=== PATIENT | male | born 1940 | race Caucasian/White ===

== ENCOUNTER 2017-01-07 03:35 | Inpatient (IN) | payer BC, MEDICARE ==
[~2017-01-07] VITALS: Ht 180.3 cm; Wt 72.6 kg
[~2017-01-07 03:35] MED LIST: ASPI-482 PO; Amoxicillin PO; CYCL10TA2 PO; DONE10TA34 PO; ERGO500012 PO; FLEXER; FLUT1DIS IH; IPRA4AER IH; LACT10SO35 PO; LEVO500T38 PO; LISI40TA PO; MORP30PC IV; MORP60TA25 PO; OXYC-250 PO; PANT40TA3 PO; PHENERGAN TAB; TAMS0.4C97 PO; TIZA2CAP3 PO; TRAM-29 PO; TRAZ100T12 PO
--- NOTE | 2017-01-07 04:06 | PHYS DOC ---
Past Medical History Past Medical History: Anxiety, Bronchitis, Cancer, COPD, CVA, Dementia, GERD, Hypertension, Stroke, Other Additional Past Medical Histor: diverticulitis, hemorrhoids, chronic back pain Past Surgical History: Appendectomy, Cholecystectomy, Other Additional Past Surgical Histo: fusion, cataract removal Alcohol Use: Heavy Drug Use: None Adult General Chief Complaint Chief Complaint: TRAUMA ALERT HPI HPI Patient is a 76 year old male presenting to the emergency department for evaluation of left shoulder pain status post fall 2 days ago. Patient is all bruised on his left arm diffusely. He denies any other areas of pain including head neck chest abdomen back or other extremities. He has no open wounds or abrasions. He denies taking any anticoagulants. Review of Systems Review of Systems Constitutional: Denies fever or chills [] Eyes: Denies change in visual acuity, redness, or eye pain [] HENT: Denies nasal congestion or sore throat [] Respiratory: Denies cough or shortness of breath [] Cardiovascular: No additional information not addressed in HPI [] GI: Denies abdominal pain, nausea, vomiting, bloody stools or diarrhea [] : Denies dysuria or hematuria [] Musculoskeletal: Denies back pain. + L shoulder joint pain [] Integument: Denies rash or skin lesions [] Neurologic: Denies headache, focal weakness or sensory changes [] Current Medications Current Medications Current Medications Medications (Trade) Dose Ordered [facility] Start Time Stop Time Status Last Admin Dose Admin Fentanyl Citrate (Fentanyl 2ml Vial) 75 mcg 1X ONCE 01/07/17 04:30 01/07/17 04:31 DC 01/07/17 04:27 75 MCG Allergies Allergies Allergies Coded Allergies Type Severity Reaction Last Updated Verified No Known Drug Allergies 09/24/13 No Physical Exam Physical Exam Constitutional: Well developed, well nourished, no acute distress, non-toxic appearance. [] HENT: Normocephalic, atraumatic, bilateral external ears normal, oropharynx moist, no oral exudates, nose normal. [] Eyes: PERRLA, EOMI, conjunctiva normal, no discharge. [] Neck: Normal range of motion, no tenderness, supple, no stridor. [] Cardiovascular:Heart rate regular rhythm, no murmur [] Lungs & Thorax: Bilateral breath sounds clear to auscultation [] Abdomen: Bowel sounds normal, soft, no tenderness, no masses, no pulsatile masses. [] Skin: Warm, dry, no erythema, no rash. [] Back: No tenderness, no CVA tenderness. [] Extremities: Left shoulder uneven with diffuse swelling and bruising on his humerus and forearm. Neurologic: Alert and oriented X 3, normal motor function, normal sensory function, no focal deficits noted. [] Current Patient Data Vital Signs Vital Signs Date Time Temp Pulse Resp B/P Pulse Ox O2 Delivery O2 Flow Rate FiO2 01/07/17 03:57 98.5 85 20 115/67 97 Room Air 98.5 EKG EKG [] Radiology/Procedures Radiology/Procedures Left shoulder fracture on x-ray. He is neurovascularly intact distally. I tried to explain to patient and family that we treat this with shoulder sling and discharged home. On said that this is unacceptable as he lives by himself and he cannot take care of himself and he has been falling more often at home. Patient will be admitted for his left shoulder fracture and likely need rehabilitation care. Course & Med Decision Making Course & Med Decision Making Pertinent Labs and Imaging studies reviewed. (See chart for details) [] Dragon Disclaimer Dragon Disclaimer This electronic medical record was generated, in whole or in part, using a voice recognition dictation system. Departure Departure Impression: Primary Impression: Shoulder fracture, left Disposition: ADMITTED INPATIENT Admitting Physician: Teodora Jones Condition: GOOD Referrals: TEODORA JONES MD (PCP) Problem Qualifiers Primary Impression: Shoulder fracture, left Encounter type: initial encounter Fracture type: closed Qualified Code: S42.92XA - Fracture of left shoulder girdle, part unspecified, initial encounter for closed fracture ESTEBAN SANTOS DO January 07, 2017 04:05
[2017-01-07] MEDS ORDERED: fentaNYL PF VIAL 100 MCG/2 ML VIAL IV ONE (04:30)
[2017-01-07] MEDS ORDERED: ONDANSETRON PF 4 MG/2 ML VIAL. IV PRN (05:00)
[2017-01-07] MEDS: fentaNYL PF VIAL 100 MCG/2 ML VIAL IV PRN ×4 (05:01→22:17)
--- NOTE | 2017-01-07 05:22 | ACF ---
Admission Forms Criteria MUSCULOSKELETAL DISEASE GRG Clinical Indications for Admission to Inpatient Care (Place 'X' for any and all applicable criteria): Hospital admission is needed for appropriate care of the patient because of 1 or more of the following: [X]I. Fracture, dislocation, or other musculoskeletal injury requiring inpatient care(medical) as indicated by 1 or more of the following(4)(5)(6)(7) [ ]a) Vertebral fracture requiring observation for instability or neurologic compromise (8) [ ]b) Compartment syndrome (proven or cannot be ruled out during observation level of care) (9) [ ]c) Limb-threatening injury [ ]d) Major injury requiring inpatient stabilization such as traction initiation or external fixation before internal fixation or closure of complex or open fracture [ ]e) Major injury requiring inpatient treatment after emergency or observation level care (as appropriate) [X]f) Severe pain requiring acute inpatient management [ ]g) Injury with suspicion of abuse or neglect (eg., child, dependent elderly) [ ]II. Newly diagnosed or suspected bone, joint, or orthopedic device infection (e.g., osteomyelitis, septic arthritis) needing 1 or more of the following(1)(2)(3) [ ]a) IV antibiotics that cannot be initiated in other than inpatient setting (e.g., patient too unstable or home infusion not available) [ ]b) Device removal or replacement [ ]c) Bone or soft tissue debridement [ ]d) Joint drainage (drain placement or repetitive aspirations) [ ]III. Severe rheumatologic disease (e.g., systemic lupus erythematosus, rheumatoid arthritis) with complications or comorbidities (Also use Optimal Recovery Care Criteria or General Recovery Criteria as appropriate on the basis of predominant condition), including 1 or more of the following( 10)(11)(12)(13) [ ]a) Severe infection (e.g., REGIONAL GUIDE infection, sepsis) (14) [ ]b) Respiratory complications, including 1 or more of the following : [ ]i) Pleural effusion with respiratory compromise [ ]ii) Pulmonary hypertension with congestive failure [ ]iii) Respiratory failure [ ]iv) Pulmonary hemorrhage (15) [ ]c) Hematologic disease, including 1 or more of the following: [ ]i) Coagulopathy with bleeding [ ]ii) Thrombosis with hypercoagulable state [ ]iii) Thrombotic thrombocytopenic purpura [ ]d) Cerebritis with seizures, psychosis, or other severe abnormalities [ ]e) Vertebral destruction with monitoring needed for cervical myelopathy& possible respiratory compromise [ ]f) Exacerbation that requires inpatient treatment (e.g., intravenous immunosuppression) (16) [ ]g) Acute renal failure [ ]h) Cerebritis with seizures, psychosis, Altered mental status, or other neurologic abnormalities [ ]i) Pericardial effusion with tamponade [ ]j) Vertebral destruction, with monitoring needed for cervical myelopathy and possible respiratory compromise [ ]IV. Severe vasculitis with complications or comorbidities (Also use Optimal Recovery Care Criteria General Recovery Criteria as appropriate on the basis of predominant condition), including 1 or more of the following(11)(12)(17)(18)(19)(20) [ ]a) Exacerbation that requires inpatient treatment (e.g., intravenous immunosuppression) (19)(21) [ ]b) Pulmonary hemorrhage (15) [ ]c) REGIONAL GUIDE vasculitis with seizures, psychosis, Altered mental status that is severe or persistent, or other severe abnormalities (22) [ ]d) Cerebral infarction [ ]e) Gastrointestinal ischemia [ ]f) Gangrene or threatened amputation [ ]g) Renal failure (16) [ ]h) Other significant complications of vasculitis ( eg., tissue or organ ischemia, organ dysfunction ) [ ]V. Severe myopathy as indicated by 1 or more of the following (28)(29) [ ]a) New onset of airway compromise or inability to swallow [ ]b) Respiratory deterioration with observation needed for impending respiratory failure [ ]c) Exacerbation that requires inpatient treatment (e.g., intravenous immunosuppression) [ ]. Severe crystal gout (arthropathy) indicated by 1 or more of the following (23)(24) [ ]a) Severe pain requiring acute inpatient management [ ]b) Exacerbation that requires inpatient treatment (e.g., intravenous treatment) [ ]VII.Rhabdomyolysis and 1 or more of the following (25)(26)(27) [ ]a) Acute renal failure [ ]b) Need for intravenous hydration after emergency or observation level care (as appropriate) [ ]c) Inability to maintain oral hydration [ ]d) Change in mental status [ ]e) Electrolyte abnormality that remains after emergency or observation level care (as appropriate) [ ]VIII Post amputation complication, as indicated by ANY ONE of the following [ ]a) Infection [ ]b) Dehiscence [ ]c) Myodesis failure [ ]IX. Severe pain requiring acute inpatient management due to musculoskeletal condition [ ]X. Musculoskeletal Disease and ALL of the following: [ ]a) Symptom or finding for which emergency and observation care have failed or are not considered appropriate (Use General Criteria: Observation Care as appropriate) [ ]b) Presence of ANY ONE of the following [ ]i) A General Admission Criteria [ ]ii) A Pediatric General Admission Criteria The original [facility] [employer] content created by [facility] [employer] has been revised. The portions of the content which have been revised are identified through the use of italic text or in bold, and [facility] has neither reviewed nor approved the modified material. All other unmodified content is copyright [facility]. Please see references footnoted in the original [facility] edition 2016 Admission Criteria Met?: Yes PURA ZUÑIGA January 07, 2017 05:22
[2017-01-07 06:06] LABS: CALCIUM 8.1 mg/dL (8.5-10.1); CREATININE 0.7 mg/dL (0.7-1.3); GFR 109.9; POTASSIUM 3.9 mmol/L (3.5-5.1)
[2017-01-07 06:12] LABS: ALBUMIN 2.8 g/dL (3.4-5.0); ALBUMIN/GLOBULIN RATIO 0.9 (1.0-1.7); TOTAL BILIRUBIN 1.8 mg/dL (0.2-1.0); TOTAL PROTEIN 5.9 g/dL (6.4-8.2)
[2017-01-07 06:24] LABS: BASO % 0 % (0-3); EOS % 0 % (0-3); HEMATOCRIT 30.3 % (39.0-53.0); HEMOGLOBIN 10.3 g/dL (13.0-17.5); LYMPH # 0.6 x10^3/uL (1.0-4.8); LYMPH % 7 % (24-48); MEAN CORPUSCULAR HEMOGLOBIN 34 pg (25-35); MEAN CORPUSCULAR HGB CONC 34 g/dL (31-37); MEAN CORPUSCULAR VOLUME 100 fL (79-100); MONO % 7 % (0-9); NEUT % 86 % (31-73); RED BLOOD COUNT 3.03 x10^6/uL (4.30-5.70); RED CELL DISTRIBUTION WIDTH 12.9 % (11.5-14.5); WHITE BLOOD COUNT 9.2 x10^3/uL (4.0-11.0)
[2017-01-07 06:38] VITALS: BP 131/61
[2017-01-07 06:42] LABS: INR 1.2 (0.8-1.1)
[2017-01-07 07:00] VITALS: BP 132/110
--- NOTE | 2017-01-07 07:29 | RAD ---
Indication pain. Oblique and lateral views of the left forearm were obtained. A true AP view was not obtained. There is soft tissue swelling. A bony abnormality is not seen.
--- NOTE | 2017-01-07 07:30 | RAD ---
Indication pain. AP and lateral views of the left humerus were obtained. There is an impacted and angulated traumatic fracture of the humeral neck with an associated avulsion fracture off the head.
--- NOTE | 2017-01-07 07:31 | RAD ---
Indication pain. An AP and a oblique view of the left shoulder were obtained. There is a transverse traumatic fracture of the humeral neck with associated impaction and angulation.
[2017-01-07 07:46] LABS: PLATELET COUNT 58 x10^3/uL (140-400)
[2017-01-07 08:11] LABS: PLT ESTIMATE DECREASED (ADEQUATE)
[2017-01-07] MEDS ORDERED: IV NORMAL SALINE 1000ML BAG 1,000 ML IV ONE (08:30)
--- NOTE | 2017-01-07 08:30 | PDOC1 ---
History and Physical Date of Admission Date of Admission DATE: 01/07/17 Identification/Chief Complaint Chief Complaint Left shoulder pain Problems: Source Source: Patient History of Present Illness History of Present Illness Pt states he was taking the trash out at home when he sustained a fall and fell directly on his left side onto the concrete. Pt states that he was using his walker at the time and just "lost his balance". Pt currently lives with his son and says that he knew he probably shouldn't have been taking the trash out. He is hoping to be able to go home, but is not sure if his sons are going to be okay with him coming directly home or if they are wanting him to go to Rehab first. He has otherwise been doing well, other than having problems with wetting his pants which has only fairly recently started. Past Medical History Cardiovascular: HTN Pulmonary: Bronchitis, COPD, Other CENTRAL NERVOUS SYSTEM: CVA, Dementia GI: Diverticulosis, GERD, Hemorrhoids, Other Heme/Onc: No pertinent hx Hepatobiliary: No pertinent hx Psych: Anxiety Musculoskeletal: low back pain Rheumatologic: No pertinent hx Infectious disease: No pertinent hx ENT: No pertinent hx Renal/: No pertinent hx, Prostate Ca. Endocrine: No pertinent hx Dermatology: No pertinent hx Past Surgical History Past Surgical History: Other (Back surgery, Gómez quentin placement) Family History Family History: Chronic Bronchitis, Heart Disease Social History Smoke: Quit ALCOHOL: other Drugs: None Current Problem List Problem List Problems Medical Problems: (1) Shoulder fracture, left Status: Acute Problems: Current Medications Current Medications Current Medications Fentanyl Citrate (Fentanyl 2ml Vial) 75 mcg 1X ONCE IV Last administered on 04:27; Start 01/07/17 at 04:30; Stop 01/07/17 at 04:31; Status DC Ondansetron HCl (Zofran) 4 mg PRN Q8HRS PRN IV NAUSEA/VOMITING; Start 01/07/17 at 05:00; Stop 01/08/17 at 04:59 Fentanyl Citrate (Fentanyl 2ml Vial) 50 mcg PRN Q2HR PRN IV SEVERE PAIN Last administered on 01/07/17 05:01; Start 01/07/17 at 05:00; Stop 01/08/17 at 04:59 Active Scripts Active Flomax (Tamsulosin Hcl) 0.4 Mg Cap.er.24h 0.4 Mg PO QHS Levaquin (Levofloxacin) 500 Mg Tablet 500 Mg PO DAILY06 Protonix (Pantoprazole Sodium) 40 Mg Tablet 40 Mg PO DAILYAC Reported Morphine Sulfate Cr (Morphine Sulfate) 60 Mg Tablet.er 60 Mg PO TID Generlac (Lactulose) 10 Gm/15 Ml Solution 10 Gm PO BID Vitamin D2 (Ergocalciferol (Vitamin D2)) 50,000 Unit Capsule 50,000 Unit PO WEEKLY Aspir 81 (Aspirin) 81 Mg Tablet.dr 81 Mg PO DAILY Advair 100-50 Diskus (Fluticasone/Salmeterol) 1 Each Disk.w.dev 1 Each IH BID Combivent Respimat Inhal (Ipratropium/Albuterol Sulfate) 4 Gm Aer.w.adap 4 Gm IH QID Aricept (Donepezil Hcl) 10 Mg Tablet 10 Mg PO DAILY Percocet 10-325 Mg Tablet (Oxycodone/Acetaminophen) 1 Each Tablet 1 Each PO QID Lisinopril 40 Mg Tablet 40 Mg PO DAILY Trazodone Hcl 100 Mg Tablet 100 Mg PO 1X Allergies Allergies: Coded Allergies: No Known Drug Allergies (Unverified , 09/24/13) ROS General: No: Chills, Night Sweats PSYCHOLOGICAL ROS: No: Anxiety, Depression Eyes: No Decreased vision, No Eye Pain HEENT: No: Nasal congestion, Sore Throat ALLERGY AND IMMUNOLOGY: No: Hives, Post Nasal Drip Hematological and Lymphatic: No: Bleeding Problems Respiratory: YES: Cough, No: Shortness of breath, Sputum Changes Cardiovascular: No Chest Pain, No Edema Gastrointestinal: No Abdominal Pain, No Constipation, No Diarrhea, No Nausea, No Vomiting Genitourinary: YES Incontinence, YES Urgency, No Dysuria Musculoskeletal: Yes Gait Disturbance, Yes Joint Pain, Yes Muscle Pain, Yes Muscular Weakness Neurological: Yes Impaired Coord/balance, No Numbness/Tingling, No Seizures Skin: No Rash, No Skin Lesion Changes Physical Exam General: Alert, Oriented X3, Cooperative, No acute distress HEENT: Atraumatic, PERRLA, EOMI, Mucous membr. moist/pink Lungs: Clear to auscultation, Normal air movement Heart: RRR, no thrills, no rubs, no gallops, no murmurs Abdomen: Normal bowel sounds, Soft, No tenderness, No hepatosplenomegaly Extremities: Other (large ecchymosis left shoulder/arm, several small ecchymoses seen on arms ) Neuro: Sensation intact, Cranial nerves 3-12 NL Psych/Mental Status: Mental status NL, Mood NL Vitals Vitals Vital Signs Date Time Temp Pulse Resp B/P Pulse Ox O2 Delivery O2 Flow Rate FiO2 01/07/17 07:00 95.0 85 16 132/110 99 Room Air 95.0 Labs Labs Laboratory Tests Test 01/07/17 05:20 White Blood Count 9.2x10^3/uL (4.0-11.0) Red Blood Count 3.03x10^6/uL (4.30-5.70) Hemoglobin 10.3g/dL (13.0-17.5) Hematocrit 30.3% (39.0-53.0) Mean Corpuscular Volume 100fL (79-100) Mean Corpuscular Hemoglobin 34pg (25-35) Mean Corpuscular Hemoglobin Concent 34g/dL (31-37) Red Cell Distribution Width 12.9% (11.5-14.5) Platelet Count 58x10^3/uL (140-400) Neutrophils (%) (Auto) 86% (31-73) Lymphocytes (%) (Auto) 7% (24-48) Monocytes (%) (Auto) 7% (0-9) Eosinophils (%) (Auto) 0% (0-3) Basophils (%) (Auto) 0% (0-3) Neutrophils # (Auto) 7.9x10^3uL (1.8-7.7) Lymphocytes # (Auto) 0.6x10^3/uL (1.0-4.8) Monocytes # (Auto) 0.6x10^3/uL (0.0-1.1) Eosinophils # (Auto) 0.0x10^3/uL (0.0-0.7) Basophils # (Auto) 0.0x10^3/uL (0.0-0.2) Segmented Neutrophils % 87% (35-66) Band Neutrophils % 1% (0-9) Lymphocytes % 6% (24-48) Monocytes % 6% (0-10) Platelet Estimate Decreased (ADEQUATE) Prothrombin Time 14.0SEC (11.7-14.0) Prothromb Time International Ratio 1.2 (0.8-1.1) Activated Partial Thromboplast Time 37SEC (24-38) Sodium Level 129mmol/L (136-145) Potassium Level 3.9mmol/L (3.5-5.1) Chloride Level 98mmol/L (98-107) Carbon Dioxide Level 26mmol/L (21-32) Anion Gap 5 (6-14) Blood Urea Nitrogen 9mg/dL (8-26) Creatinine 0.7mg/dL (0.7-1.3) Estimated GFR (Cockcroft-Gault) 109.9 BUN/Creatinine Ratio 13 (6-20) Glucose Level 130mg/dL (70-99) Calcium Level 8.1mg/dL (8.5-10.1) Total Bilirubin 1.8mg/dL (0.2-1.0) Aspartate Amino Transf (AST/SGOT) 28U/L (15-37) Alanine Aminotransferase (ALT/SGPT) 24U/L (16-63) Alkaline Phosphatase 74U/L (46-116) Total Protein 5.9g/dL (6.4-8.2) Albumin 2.8g/dL (3.4-5.0) Albumin/Globulin Ratio 0.9 (1.0-1.7) Laboratory Tests Test 01/07/17 05:20 White Blood Count 9.2x10^3/uL (4.0-11.0) Red Blood Count 3.03x10^6/uL (4.30-5.70) Hemoglobin 10.3g/dL (13.0-17.5) Hematocrit 30.3% (39.0-53.0) Mean Corpuscular Volume 100fL (79-100) Mean Corpuscular Hemoglobin 34pg (25-35) Mean Corpuscular Hemoglobin Concent 34g/dL (31-37) Red Cell Distribution Width 12.9% (11.5-14.5) Platelet Count 58x10^3/uL (140-400) Neutrophils (%) (Auto) 86% (31-73) Lymphocytes (%) (Auto) 7% (24-48) Monocytes (%) (Auto) 7% (0-9) Eosinophils (%) (Auto) 0% (0-3) Basophils (%) (Auto) 0% (0-3) Neutrophils # (Auto) 7.9x10^3uL (1.8-7.7) Lymphocytes # (Auto) 0.6x10^3/uL (1.0-4.8) Monocytes # (Auto) 0.6x10^3/uL (0.0-1.1) Eosinophils # (Auto) 0.0x10^3/uL (0.0-0.7) Basophils # (Auto) 0.0x10^3/uL (0.0-0.2) Segmented Neutrophils % 87% (35-66) Band Neutrophils % 1% (0-9) Lymphocytes % 6% (24-48) Monocytes % 6% (0-10) Platelet Estimate Decreased (ADEQUATE) Prothrombin Time 14.0SEC (11.7-14.0) Prothromb Time International Ratio 1.2 (0.8-1.1) Activated Partial Thromboplast Time 37SEC (24-38) Sodium Level 129mmol/L (136-145) Potassium Level 3.9mmol/L (3.5-5.1) Chloride Level 98mmol/L (98-107) Carbon Dioxide Level 26mmol/L (21-32) Anion Gap 5 (6-14) Blood Urea Nitrogen 9mg/dL (8-26) Creatinine 0.7mg/dL (0.7-1.3) Estimated GFR (Cockcroft-Gault) 109.9 BUN/Creatinine Ratio 13 (6-20) Glucose Level 130mg/dL (70-99) Calcium Level 8.1mg/dL (8.5-10.1) Total Bilirubin 1.8mg/dL (0.2-1.0) Aspartate Amino Transf (AST/SGOT) 28U/L (15-37) Alanine Aminotransferase (ALT/SGPT) 24U/L (16-63) Alkaline Phosphatase 74U/L (46-116) Total Protein 5.9g/dL (6.4-8.2) Albumin 2.8g/dL (3.4-5.0) Albumin/Globulin Ratio 0.9 (1.0-1.7) VTE Prophylaxis Ordered VTE Prophylaxis Devices: Yes VTE Pharmacological Prophylaxi: No Assessment/Plan Assessment/Plan Pt is a 76yo CM admitted with left humeral fracture after fall 1)Left humeral fracture- Ortho has been consulted. 2)Thrombocytopenia- acute on chronic with significant bruising left arm from fall. Recheck in am 3)Hyponatremia- new finding. Likely 2/2 dehydration. Will give pt 1L IVFs 4)Anemia- acute on chronic. Worsening likely 2/2 traumatic bleeding from fall. CTM 5)Hyperglycemia- HbA1C pending. 6)PEM- severe. 7)Dementia- pt continued on Aricept 8)GERD- pt continued on Pantoprazole 9)Chronic back pain- with Gómez quentin placement. Pt continued on MS Contin 60mg BID and Oxycodone 10mg q6H prn 10)HTN- well controlled. Pt continued on Lisinopril 40mg 11)COPD- stable. Pt continued on Duonebs and Albuterol inhaler. HUDSON JEFFERS MD January 07, 2017 08:30
[2017-01-07] MEDS: IPRATRPIUM/ALBUTEROL 0.5/2.5MG 3 ML NEBU. NEB SCH ×4 (09:00→19:07)
[2017-01-07] MEDS ORDERED: NON FORMULARY ITEM (Fluticasone/Salmeterol (Advair 100-50 Diskus) 1 EACH) IH SCH (09:00)
[2017-01-07] MEDS ORDERED: NON FORMULARY ITEM (Ipratropium/Albuterol Sulfate (Combivent Respimat Inhal) 4 GM) IH SCH (09:00)
[2017-01-07] MEDS: PANTOPRAZOLE 40 MG TABLET.DR. PO SCH (09:25)
[2017-01-07] MEDS: LISINOPRIL 40 MG TABLET. PO SCH (09:26)
[2017-01-07] MEDS: DONEPEZIL HCL 10 MG TABLET. PO SCH (09:26)
[2017-01-07] MEDS: MORPHINE ER 30 MG TABLET.ER PO SCH ×2 (09:28→20:10)
[2017-01-07 11:00] VITALS: BP 121/68
[2017-01-07] MEDS: BUDESONIDE 0.5 MG/2 ML NEBU. NEB SCH ×2 (11:19→19:07)
[2017-01-07 15:00] VITALS: BP 109/64
--- NOTE | 2017-01-07 17:20 | PDOC2 ---
CONSULT Date of Consult Date of Consult DATE: 01/07/17 TIME: 17:13 History of Present Illness Reason for Visit: The patient is a 76 year old male who reported to the hospital after a fall. He states he was taking his trash out and fell on his left side. He is a somewhat poor historian and some additional history was obtained from the record. He complains only of pain in the left shoulder. His evaluation in the ER revealed a left humeral fracture. While in the hospital he also had some urinary retention and a pfeiffer catheter was just placed by his nurse. Past Medical History Cardiovascular: HTN Pulmonary: Bronchitis, COPD, Other CENTRAL NERVOUS SYSTEM: CVA, Dementia GI: Diverticulosis, GERD, Hemorrhoids, Other Heme/Onc: No pertinent hx Hepatobiliary: No pertinent hx Psych: Anxiety Musculoskeletal: low back pain Rheumatologic: No pertinent hx Infectious disease: No pertinent hx ENT: No pertinent hx Renal/: No pertinent hx, Prostate Ca. Endocrine: No pertinent hx Dermatology: No pertinent hx Past Surgical History Past Surgical History: Other (Back surgery, Gómez quentin placement) Family History Family History: Chronic Bronchitis, Heart Disease Social History Quit ALCOHOL: other Drugs: None Current Problem List Problem List Problems Medical Problems: (1) Shoulder fracture, left Status: Acute Current Medications Current Medications Current Medications Fentanyl Citrate (Fentanyl 2ml Vial) 75 mcg 1X ONCE IV Last administered on 04:27; Start 01/07/17 at 04:30; Stop 01/07/17 at 04:31; Status DC Ondansetron HCl (Zofran) 4 mg PRN Q8HRS PRN IV NAUSEA/VOMITING; Start 01/07/17 at 05:00; Stop 01/08/17 at 04:59 Fentanyl Citrate (Fentanyl 2ml Vial) 50 mcg PRN Q2HR PRN IV SEVERE PAIN Last administered on 01/07/17 14:08; Start 01/07/17 at 05:00; Stop 01/08/17 at 04:59 Donepezil HCl (Aricept) 10 mg DAILY PO Last administered on 01/07/17 09:26; Start 01/07/17 at 09:00 Lisinopril (Prinivil) 40 mg DAILY PO Last administered on 01/07/17 09:26; Start 01/07/17 at 09:00 Pantoprazole Sodium (Protonix) 40 mg DAILYAC PO Last administered on 01/07/17 09:25; Start 01/07/17 at 09:00 Tamsulosin HCl (Flomax) 0.4 mg QHS PO ; Start 01/07/17 at 21:00 Trazodone HCl (Desyrel) 100 mg QHS PO ; Start 01/07/17 at 21:00 Non-Formulary Medication 1 each BID IH ; Start 01/07/17 at 09:00; Status UNV Non-Formulary Medication 4 gm QID IH ; Start 01/07/17 at 09:00; Status UNV Morphine Sulfate (Ms Contin) 60 mg BID PO Last administered on 01/07/17 09:28; Start 01/07/17 at 09:00 Oxycodone HCl (Roxicodone) 10 mg PRN Q6HRS PRN PO PAIN; Start 01/07/17 at 08:30 Albuterol/ Ipratropium (Duoneb) 3 ml RTQID NEB Last administered on 01/07/17 15 :45; Start 01/07/17 at 09:00 Budesonide 0.5 mg 0.5 mg RTBID NEB Last administered on 01/07/17 11:19; Start 01/07/17 at 09:00 Sodium Chloride (Iv Sodium Chloride 0.9% 1000ml Bag) 1,000 ml @ 100 mls/hr 1X ONCE IV Last administered on 01/07/17 09:28; Start 01/07/17 at 08:30; Stop at 18:29 Active Scripts Active Flomax (Tamsulosin Hcl) 0.4 Mg Cap.er.24h 0.4 Mg PO QHS Levaquin (Levofloxacin) 500 Mg Tablet 500 Mg PO DAILY06 Protonix (Pantoprazole Sodium) 40 Mg Tablet 40 Mg PO DAILYAC Reported Morphine Sulfate Cr (Morphine Sulfate) 60 Mg Tablet.er 60 Mg PO TID Generlac (Lactulose) 10 Gm/15 Ml Solution 10 Gm PO BID Vitamin D2 (Ergocalciferol (Vitamin D2)) 50,000 Unit Capsule 50,000 Unit PO WEEKLY Aspir 81 (Aspirin) 81 Mg Tablet.dr 81 Mg PO DAILY Advair 100-50 Diskus (Fluticasone/Salmeterol) 1 Each Disk.w.dev 1 Each IH BID Combivent Respimat Inhal (Ipratropium/Albuterol Sulfate) 4 Gm Aer.w.adap 4 Gm IH QID Aricept (Donepezil Hcl) 10 Mg Tablet 10 Mg PO DAILY Percocet 10-325 Mg Tablet (Oxycodone/Acetaminophen) 1 Each Tablet 1 Each PO QID Lisinopril 40 Mg Tablet 40 Mg PO DAILY Trazodone Hcl 100 Mg Tablet 100 Mg PO 1X Allergies Allergies: Coded Allergies: No Known Drug Allergies (Unverified , 09/24/13) ROS General: YES: Other (admits to weakness ) PSYCHOLOGICAL ROS: No: Anxiety, Behavioral Disorder, Concentration difficultie , Decreased libido, Depression, Disorientation, Hallucinations, Hostility, Irritablity, Memory difficulties, Mood Swings, Obsessive thoughts, Other, Physical abuse, Sexual abuse, Sleep disturbances, Suicidal ideation Eyes: No Blurry vision, No Decreased vision, No Double vision, No Dry eyes, No Excessive tearing, No Eye Pain, No Itchy Eyes, No Loss of vision, No Other, No Photophobia, No Scotomata, No Uses contacts, No Uses glasses HEENT: No: Epistaxis, Heacaches, Hearing change, Nasal congestion, Nasal discharge, Oral lesions, Other, Sinus pain, Sneezing, Snoring, Sore Throat, Tinnitus, Vertigo, Visual Changes, Vocal changes Respiratory: YES: Cough, Shortness of breath Cardiovascular: No Chest Pain, No Edema, No Lt Headedness, No Orthopnea, No Other, No Palpitations, No Paroxysmal Noc. Dyspnea Gastrointestinal: No Abdominal Pain, No Constipation, No Diarrhea, No Hematochezia, No Melena, No Nausea, No Other, No Vomiting Genitourinary: YES Incontinence Musculoskeletal: No Gait Disturbance, No Joint Pain, No Joint Stiffness, No Joint Swelling, No Muscle Pain, No Muscular Weakness, No Other, No Pain In:, No Swelling In: Neurological: No Behavorial Changes, No Bowel/Bladder ControlChng, No Confusion , No Dizziness, No Gait Disturbance, No Headaches, No Impaired Coord/balance, No Memory Loss, No Numbness/Tingling, No Other, No Seizures, No Speech Problems , No Tremors, No Visual Changes, No Weakness Skin: Yes Acne (easy bruising) Physical Exam General: Alert, Oriented X3, Other (elderly, frail, uncomfortable due to pain in the left shoulder) HEENT: Atraumatic, PERRLA Lungs: Clear to auscultation, Other (somewhat poor air movement due to secondary shoulder pain) Heart: Regular rate Abdomen: Soft, No tenderness Extremities: Other (left shoulder with severe ecchymosis, sling; mild bruising in other extremities, patient states is chronic) Skin: No rashes Neuro: Normal speech Psych/Mental Status: Mental status NL MUSCULOSKELETAL: Other (left humerous with tenderness, bruising, sling) Vitals VITALS Vital Signs Date Time Temp Pulse Resp B/P Pulse Ox O2 Delivery O2 Flow Rate FiO2 01/07/17 15:46 Room Air 01/07/17 15:00 98.2 107 18 109/64 96 98.2 Labs Labs Laboratory Tests Test 01/07/17 05:20 01/07/17 06:40 White Blood Count 9.2x10^3/uL (4.0-11.0) Red Blood Count 3.03x10^6/uL (4.30-5.70) Hemoglobin 10.3g/dL (13.0-17.5) Hematocrit 30.3% (39.0-53.0) Mean Corpuscular Volume 100fL (79-100) Mean Corpuscular Hemoglobin 34pg (25-35) Mean Corpuscular Hemoglobin Concent 34g/dL (31-37) Red Cell Distribution Width 12.9% (11.5-14.5) Platelet Count 58x10^3/uL (140-400) Neutrophils (%) (Auto) 86% (31-73) Lymphocytes (%) (Auto) 7% (24-48) Monocytes (%) (Auto) 7% (0-9) Eosinophils (%) (Auto) 0% (0-3) Basophils (%) (Auto) 0% (0-3) Neutrophils # (Auto) 7.9x10^3uL (1.8-7.7) Lymphocytes # (Auto) 0.6x10^3/uL (1.0-4.8) Monocytes # (Auto) 0.6x10^3/uL (0.0-1.1) Eosinophils # (Auto) 0.0x10^3/uL (0.0-0.7) Basophils # (Auto) 0.0x10^3/uL (0.0-0.2) Segmented Neutrophils % 87% (35-66) Band Neutrophils % 1% (0-9) Lymphocytes % 6% (24-48) Monocytes % 6% (0-10) Platelet Estimate Decreased (ADEQUATE) Prothrombin Time 14.0SEC (11.7-14.0) Prothromb Time International Ratio 1.2 (0.8-1.1) Activated Partial Thromboplast Time 37SEC (24-38) Sodium Level 129mmol/L (136-145) Potassium Level 3.9mmol/L (3.5-5.1) Chloride Level 98mmol/L (98-107) Carbon Dioxide Level 26mmol/L (21-32) Anion Gap 5 (6-14) Blood Urea Nitrogen 9mg/dL (8-26) Creatinine 0.7mg/dL (0.7-1.3) Estimated GFR (Cockcroft-Gault) 109.9 BUN/Creatinine Ratio 13 (6-20) Glucose Level 130mg/dL (70-99) Calcium Level 8.1mg/dL (8.5-10.1) Total Bilirubin 1.8mg/dL (0.2-1.0) Aspartate Amino Transf (AST/SGOT) 28U/L (15-37) Alanine Aminotransferase (ALT/SGPT) 24U/L (16-63) Alkaline Phosphatase 74U/L (46-116) Total Protein 5.9g/dL (6.4-8.2) Albumin 2.8g/dL (3.4-5.0) Albumin/Globulin Ratio 0.9 (1.0-1.7) Nasal Screen MRSA (PCR) Negative (Negative) Laboratory Tests Test 01/07/17 05:20 01/07/17 06:40 White Blood Count 9.2x10^3/uL (4.0-11.0) Red Blood Count 3.03x10^6/uL (4.30-5.70) Hemoglobin 10.3g/dL (13.0-17.5) Hematocrit 30.3% (39.0-53.0) Mean Corpuscular Volume 100fL (79-100) Mean Corpuscular Hemoglobin 34pg (25-35) Mean Corpuscular Hemoglobin Concent 34g/dL (31-37) Red Cell Distribution Width 12.9% (11.5-14.5) Platelet Count 58x10^3/uL (140-400) Neutrophils (%) (Auto) 86% (31-73) Lymphocytes (%) (Auto) 7% (24-48) Monocytes (%) (Auto) 7% (0-9) Eosinophils (%) (Auto) 0% (0-3) Basophils (%) (Auto) 0% (0-3) Neutrophils # (Auto) 7.9x10^3uL (1.8-7.7) Lymphocytes # (Auto) 0.6x10^3/uL (1.0-4.8) Monocytes # (Auto) 0.6x10^3/uL (0.0-1.1) Eosinophils # (Auto) 0.0x10^3/uL (0.0-0.7) Basophils # (Auto) 0.0x10^3/uL (0.0-0.2) Segmented Neutrophils % 87% (35-66) Band Neutrophils % 1% (0-9) Lymphocytes % 6% (24-48) Monocytes % 6% (0-10) Platelet Estimate Decreased (ADEQUATE) Prothrombin Time 14.0SEC (11.7-14.0) Prothromb Time International Ratio 1.2 (0.8-1.1) Activated Partial Thromboplast Time 37SEC (24-38) Sodium Level 129mmol/L (136-145) Potassium Level 3.9mmol/L (3.5-5.1) Chloride Level 98mmol/L (98-107) Carbon Dioxide Level 26mmol/L (21-32) Anion Gap 5 (6-14) Blood Urea Nitrogen 9mg/dL (8-26) Creatinine 0.7mg/dL (0.7-1.3) Estimated GFR (Cockcroft-Gault) 109.9 BUN/Creatinine Ratio 13 (6-20) Glucose Level 130mg/dL (70-99) Calcium Level 8.1mg/dL (8.5-10.1) Total Bilirubin 1.8mg/dL (0.2-1.0) Aspartate Amino Transf (AST/SGOT) 28U/L (15-37) Alanine Aminotransferase (ALT/SGPT) 24U/L (16-63) Alkaline Phosphatase 74U/L (46-116) Total Protein 5.9g/dL (6.4-8.2) Albumin 2.8g/dL (3.4-5.0) Albumin/Globulin Ratio 0.9 (1.0-1.7) Nasal Screen MRSA (PCR) Negative (Negative) Assessment/Plan Assessment/Plan 76 year old male S/P fall, left humerus fracture, urinary retention. Ortho has been consulted regarding the humeral fracture. There are no other identified associated injuries. We will sign off, please call if we can assist in the future. SREEDHAR BAPTISTE MD January 07, 2017 17:20
[2017-01-07 17:28] LABS: BILIRUBIN,URINE NEGATIVE (NEG); GLUCOSE,URINE NEGATIVE (NEG); NITRITE,URINE NEGATIVE (NEG); PROTEIN,URINE NEGATIVE (NEG-TRACE)
[2017-01-07 17:34] LABS: BACTERIA,URINE 0 /HPF (0-FEW); RBC,URINE 0 /HPF (0-2); SQUAMOUS EPITHELIAL CELL,UR OCC /LPF; WBC,URINE 0 /HPF (0-4)
[2017-01-07 19:15] VITALS: BP 105/54
[2017-01-07] MEDS: IV RINGERS,LACTATED 1000ML 1,000 ML IV SCH (20:03)
[2017-01-07] MEDS: traZODone 100 MG TABLET. PO SCH (20:10)
[2017-01-07] MEDS: TAMSULOSIN 0.4 MG CAP.ER.24H. PO SCH (20:10)
[2017-01-07] MEDS: oxyCODONE IR 5 MG TABLET PO PRN (20:10)
[2017-01-07] MEDS ORDERED: MIDAZOLAM HCL/PF 2 MG/2 ML VIAL. IV PRN ×2 (20:15)
[2017-01-07] MEDS ORDERED: MEPERIDINE PF 25 MG/ML VIAL. IV PRN (20:15)
[2017-01-07] MEDS ORDERED: HYDROmorphone 2 MG/ML VIAL IV PRN (20:15)
[2017-01-07] MEDS ORDERED: MORPHINE SULFATE 4 MG/ML DISP.SYRIN. IV PRN (20:15)
[2017-01-07] MEDS ORDERED: diphenhydrAMINE 50 MG/ML VIAL IV PRN (20:15)
[2017-01-07] MEDS ORDERED: PROCHLORPERAZINE 10 MG/2 ML VIAL. IV PRN (20:15)
[2017-01-07] MEDS ORDERED: LIDOCAINE 1% 1 ML SYRINGE. ID PRN (20:15)
[2017-01-07] MEDS ORDERED: fentaNYL PF VIAL 100 MCG/2 ML VIAL IV PRN ×2 (20:15)
[2017-01-07 23:28] VITALS: BP 95/52
[2017-01-08] VITALS (12 sets, daily range): BP systolic 104–141; BP diastolic 52–89
[2017-01-08] MEDS: oxyCODONE IR 5 MG TABLET PO PRN ×2 (01:43→20:04)
[2017-01-08] MEDS: fentaNYL PF VIAL 100 MCG/2 ML VIAL IV PRN ×4 (01:44→18:07)
[2017-01-08] MEDS: IV RINGERS,LACTATED 1000ML 1,000 ML IV SCH (01:44)
[2017-01-08] MEDS: PANTOPRAZOLE 40 MG TABLET.DR. PO SCH (04:43)
[2017-01-08] MEDS: IPRATRPIUM/ALBUTEROL 0.5/2.5MG 3 ML NEBU. NEB SCH ×4 (06:57→19:06)
[2017-01-08] MEDS: BUDESONIDE 0.5 MG/2 ML NEBU. NEB SCH ×2 (06:58→19:07)
[2017-01-08] MEDS: LISINOPRIL 40 MG TABLET. PO SCH (08:05)
[2017-01-08] MEDS: MORPHINE ER 30 MG TABLET.ER PO SCH ×2 (08:05→20:03)
[2017-01-08] MEDS: DONEPEZIL HCL 10 MG TABLET. PO SCH (08:05)
--- NOTE | 2017-01-08 08:49 | PDOC ---
SUBJECTIVE Subjective Pt states that he is feeling better this morning. Still having pain in his left shoulder. Scheduled for surgery this afternoon. OBJECTIVE Vital Signs Vital Signs Date Time Temp Pulse Resp B/P Pulse Ox O2 Delivery O2 Flow Rate FiO2 01/08/17 08:05 Room Air 01/08/17 08:05 93 113/63 01/08/17 08:00 Room Air 01/08/17 07:00 98.6 93 14 113/63 97 Room Air 98.6 01/08/17 06:59 97 Room Air 01/08/17 04:55 Room Air 01/08/17 03:32 98.1 69 18 104/52 93 Room Air 98.1 01/08/17 02:15 Room Air 01/08/17 01:44 18 01/08/17 01:43 18 01/08/17 00:20 18 Room Air 01/07/17 23:28 98.7 89 18 95/52 98 Room Air 98.7 01/07/17 22:17 18 Room Air 01/07/17 21:58 Room Air 01/07/17 20:18 22 Room Air 01/07/17 20:10 18 Room Air 01/07/17 20:10 Room Air 01/07/17 20:00 Room Air 01/07/17 19:15 97.7 102 18 105/54 99 Room Air 97.7 01/07/17 19:10 Room Air 01/07/17 19:09 Room Air 01/07/17 15:46 Room Air 01/07/17 15:00 98.2 107 18 109/64 96 Room Air 98.2 01/07/17 14:38 18 01/07/17 14:08 18 Room Air 01/07/17 11:15 97 Room Air 01/07/17 11:00 98.8 74 18 121/68 95 Room Air 98.8 01/07/17 09:28 16 Room Air 01/07/17 09:26 85 132/110 I & O Intake and Output 01/08/17 07:00 Intake Total 240 ml Output Total 800 ml Balance -560 ml Intake Oral 240 ml Output Urine Total 800 ml PHYSICAL EXAM Physical Exam General: Alert, Oriented X3, Cooperative, No acute distress HEENT: Atraumatic, PERRLA, EOMI, Mucous membr. moist/pink Lungs: Clear to auscultation, Normal air movement Heart: RRR, no thrills, no rubs, no gallops, no murmurs Abdomen: Normal bowel sounds, Soft, No tenderness, No hepatosplenomegaly Extremities: Other (large ecchymosis left shoulder/arm, several small ecchymoses seen on arms ), left arm in sling Neuro: Sensation intact, Cranial nerves 3-12 NL Psych/Mental Status: Mental status NL, Mood NL ASSESSMENT/PLAN Assessment/Plan Pt is a 76yo CM admitted with left humeral fracture after fall 1)Left humeral fracture- Ortho has been consulted, surgery this afternoon 2)Thrombocytopenia- acute on chronic with significant bruising left arm from fall. Repeat labs pending 3)Hyponatremia- new finding. Likely 2/2 dehydration. Will give pt 1L IVFs, repeat labs pending this morning 4)Anemia- acute on chronic. Worsening likely 2/2 traumatic bleeding from fall. CTM 5)Hyperglycemia- normal HbA1C this admission 6)PEM- severe. 7)Dementia- pt continued on Aricept 8)GERD- pt continued on Pantoprazole 9)Chronic back pain- with Gómez quentin placement. Pt continued on MS Contin 60mg BID and Oxycodone 10mg q6H prn 10)HTN- well controlled. Pt continued on Lisinopril 40mg 11)COPD- stable. Pt continued on Duonebs and Albuterol inhaler. Problems: COMMENT Lab Laboratory Tests Test 01/07/17 16:55 Urine Collection Type Unknown Urine Color Yellow Urine Clarity Clear Urine pH 6.0 Urine Specific [place] 1.010 Urine Protein Negativemg/dL (NEG-TRACE) Urine Glucose (UA) Negativemg/dL (NEG) Urine Ketones (Stick) Negativemg/dL (NEG) Urine Blood Negative (NEG) Urine Nitrite Negative (NEG) Urine Bilirubin Negative (NEG) Urine Urobilinogen Dipstick 1.0mg/dL (0.2 mg/dL) Urine Leukocyte Esterase Negative (NEG) Urine RBC 0/HPF (0-2) Urine WBC 0/HPF (0-4) Urine Squamous Epithelial Cells Occ/LPF Urine Bacteria 0/HPF (0-FEW) Urine Hyaline Casts Occasional/HPF Urine Mucus Slight/LPF HUDSON JEFFERS MD January 08, 2017 08:49
[2017-01-08 09:52] LABS: HEMATOCRIT 22.5 % (39.0-53.0); HEMOGLOBIN 7.9 g/dL (13.0-17.5); RED BLOOD COUNT 2.29 x10^6/uL (4.30-5.70); RED CELL DISTRIBUTION WIDTH 12.9 % (11.5-14.5); WHITE BLOOD COUNT 5.2 x10^3/uL (4.0-11.0)
[2017-01-08 09:58] LABS: CALCIUM 7.5 mg/dL (8.5-10.1); CREATININE 0.6 mg/dL (0.7-1.3); GFR 131.3; POTASSIUM 3.5 mmol/L (3.5-5.1)
[2017-01-08] MEDS ORDERED: DEXAMETHASONE SOD PHOS 20 MG/5 ML VIAL. ONE (14:45)
[2017-01-08] MEDS ORDERED: PROPOFOL 20 ML IV ONE (14:45)
[2017-01-08] MEDS ORDERED: ONDANSETRON PF 4 MG/2 ML VIAL. ONE (14:45)
[2017-01-08] MEDS ORDERED: LIDOCAINE 2% 100 MG/5 ML SYRINGE. ONE (14:45)
[2017-01-08] MEDS ORDERED: PHENYLEPHRINE in 0.9% NACL PF 1 MG/10 ML DISP.SYRIN. IV ONE (14:46)
[2017-01-08] MEDS ORDERED: ePHEDrine PF IN SALINE 50 MG/5 ML DISP.SYRIN IV ONE (14:46)
[2017-01-08] MEDS ORDERED: fentaNYL PF VIAL 250 MCG/5 ML VIAL ONE (14:47)
[2017-01-08] MEDS ORDERED: ROCURONIUM 50 MG/5 ML VIAL. ONE (14:47)
[2017-01-08] MEDS ORDERED: SUCCINYLCHOLINE 200 MG/10 ML VIAL. ONE (15:25)
[2017-01-08] MEDS ORDERED: PHENYLEPHRINE 10 MG/ML VIAL. ONE (16:14)
[2017-01-08] MEDS ORDERED: DESFLURANE > 120 MINUTES IH ONE (17:05)
[2017-01-08] MEDS ORDERED: NEOSTIGMINE METHYLSULFATE 5 MG/5 ML SYRINGE. ONE (17:08)
[2017-01-08] MEDS ORDERED: GLYCOPYRROLATE 1 MG/5 ML VIAL. ONE (17:09)
--- NOTE | 2017-01-08 17:37 | PDOC ---
BRIEF OPERATIVE NOTE Date: January 08, 2017 Pre-Op Diagnosis left proximal humerus fx Post-Op Diagnosis same Procedure Performed ORIF left proximal humerus fx Surgeon Kimberlee Anesthesia Type: General Blood Loss 150cc Findings above Complications none FLAKO WORKMAN MD January 08, 2017 17:37
[2017-01-08] MEDS: TAMSULOSIN 0.4 MG CAP.ER.24H. PO SCH (20:03)
[2017-01-08] MEDS: traZODone 100 MG TABLET. PO SCH (20:03)
--- NOTE | 2017-01-08 21:18 | OP ---
DATE OF SURGERY: 01/08/2017 PREOPERATIVE DIAGNOSIS: Displaced left proximal humerus fracture. POSTOPERATIVE DIAGNOSIS: Displaced left proximal humerus fracture. PROCEDURE: Operative reduction and internal fixation of left proximal humerus fracture. SURGEON: Tyler Mohan M.D. ANESTHESIA: General. ESTIMATED BLOOD LOSS: 150 mL. COMPLICATIONS: None. OPERATIVE INDICATIONS: The patient fell on his left side, sustaining a displaced proximal humerus fracture; he is left hand dominant, ambulates with a walker and is unable to lift his arm or put pressure on it at all, this point is very painful with any movement. I had gone over with him and is on the x-ray findings and the malalignment of the proximal humerus. Recommendations for operative evaluation and treatment, nonoperative treatment. Possible complications of operation including infection, nerve or blood vessel damage, medical or other anesthetic complications among others. All his questions were answered and he wants to proceed with operative evaluation and treatment. DESCRIPTION OF PROCEDURE: The patient was identified, procedure verified, patient placed in the supine position on the operating table. After adequate amounts of general endotracheal anesthesia were administered, he was placed on the OR table in beach chair position and the left shoulder was prepped and draped in standard sterile fashion. After timeout was performed, the patient and procedure identified and verified, a deltopectoral approach was carried out to the shoulder. Deltoid and cephalic vein were taken laterally and undersurface of the deltoid swept off the area of the fracture, which was readily palpable. Rotator cuff appeared otherwise intact. After reduction of the fracture under fluoroscopic guidance, the Kuldeep 4-hole proximal locking plate was selected and fixed on the shaft in desired location. Distal locking screws were placed and were all verified under fluoroscopic guidance with the length and placement. An excellent reduction was carried out. There was impaction of the fracture anatomic reduction itself, but was certainly acceptable and with excellent headed fixation with locking screws. Total of 2 more locking screws were placed in the shaft for additional reinforcement and reduction again was checked under multiple fluoroscopic views. Thorough irrigation carried out with normal saline solution. Fascia was closed with buried Vicryl suture, subcutaneous closure with buried Vicryl as well, and skin closure with argelia. Sterile dressings were applied. The patient was returned to recovery room in stable condition having tolerated the procedure well. TYLER MOHAN MD DR: TWILA/mai JOB#: [id number] / [id number]
--- NOTE | 2017-01-09 01:28 | CONS ---
DATE OF CONSULTATION: 01/07/2017 REQUESTING PHYSICIAN: Dr. Dano Jones. REASON FOR CONSULTATION: Left humerus fracture. HISTORY OF PRESENT ILLNESS: The patient is a 76-year-old male who was taking the trash out. He walks with the assistance of a walker and lost his balance and fell on his left side on to the concrete driveway. He denies any head injury or loss of consciousness. Main complaint is shoulder pain, especially with any pressure or motion. No significant bruising of the arm. PAST MEDICAL HISTORY: Significant for previous stroke and some dementia, reflux disease, hemorrhoids, diverticulosis, bronchitis, COPD, hypertension, chronic low back pain, prostate cancer and some anxiety. PAST SURGICAL HISTORY: Significant for a previous lumbar fusion. FAMILY HISTORY: Heart disease and lung problems. SOCIAL HISTORY: Quit smoking some time ago. Denies alcohol or drug use. REVIEW OF SYSTEMS: Denies any chest pain, shortness of breath, numbness, tingling in the extremities. He does have significant left shoulder pain with any pressure, motion, and bruising in the left arm. Denies any visual changes, recent illness, fever, chills or other problems. He does note some recent urinary incontinence. PHYSICAL EXAMINATION: VITAL SIGNS: Temperature 98.1, pulse 83, respirations 14, blood pressure 111/65, pulse ox 94% on room air. EXTREMITIES: Examination of the left upper extremity reveals significant bruising, swelling over the area of the shoulder and tenderness on palpation over the proximal humerus. He has reasonable elbow and wrist range of motion and stability bilaterally. He is able to grasp and extend his fingers. No sensory deficits noted in the upper extremity at present. Normal examination of the contralateral right shoulder, and elbow and wrist as well. IMAGING: X-rays show a displaced proximal humerus fracture on the left that appears to be three-part. TREATMENT PLAN: I talked to him about treatment options. He is left hand dominant and concerned about the fact that he really cannot use his arm at all at present. We went over the x-ray findings of significant deformity and the usual treatment of restoring the anatomy and plate and screw fixation. I noted that even under the best of circumstances with good healing and functionality afterward that he would likely lose significant range of motion of the shoulder, but our goal is to mainly restore the anatomy and make him as functional as possible. He to lose a minimum of function with this arm and prefers the operative treatment and is aware of the possible risks of infection, nerve or blood vessel damage, medical or other anesthetic complications among others. All his questions were answered and surgery will be planned for tomorrow. FLAKO WORKMAN MD DR: TWILA/mai JOB#: [id number] / [id number] DAON Stewart MD
[2017-01-09 02:43] VITALS: BP 98/57
[2017-01-09] MEDS: oxyCODONE IR 5 MG TABLET PO PRN ×3 (02:59→23:12)
[2017-01-09] MEDS: IPRATRPIUM/ALBUTEROL 0.5/2.5MG 3 ML NEBU. NEB SCH ×4 (06:54→20:20)
[2017-01-09] MEDS: BUDESONIDE 0.5 MG/2 ML NEBU. NEB SCH ×2 (06:54→20:21)
[2017-01-09 07:15] VITALS: BP 108/50
--- NOTE | 2017-01-09 08:04 | PDOC ---
SUBJECTIVE Subjective Pt confused this morning. States that he was at home this morning and is currently waiting for his lunch. He states his pain has decreased to 5. OBJECTIVE Vital Signs Vital Signs Date Time Temp Pulse Resp B/P (MAP) Pulse Ox O2 Delivery O2 Flow Rate FiO2 01/09/17 06:55 92 Room Air 01/09/17 02:59 18 Room Air 01/09/17 02:43 98.2 89 18 98/57 (71) 91 Room Air 98.2 01/08/17 22:30 105 110/61 (77) 01/08/17 21:30 103 105/61 (76) 99 Nasal Cannula 2.0 01/08/17 20:30 128 119/68 (85) 98 Nasal Cannula 2.0 01/08/17 20:04 18 Nasal Cannula 2.0 01/08/17 20:03 18 Nasal Cannula 2.0 01/08/17 20:00 Nasal Cannula 2.0 01/08/17 20:00 115 128/70 (89) 99 01/08/17 19:30 109 124/70 (88) 99 Room Air 01/08/17 19:15 102 119/63 (81) 100 Room Air 01/08/17 19:08 98 Nasal Cannula 2.0 01/08/17 19:08 98 Nasal Cannula 2.0 01/08/17 19:00 95 141/87 (105) 98 01/08/17 18:45 97.5 92 14 134/89 (104) 99 Room Air 97.5 01/08/17 18:29 Nasal Cannula 2 01/08/17 18:17 98.8 98 14 139/77 100 Nasal Cannula 2 98.8 01/08/17 18:07 14 92 Room Air 01/08/17 18:02 106 14 133/78 95 Room Air 01/08/17 17:56 Room Air 01/08/17 17:47 112 14 129/79 95 Room Air 01/08/17 17:43 100 Simple Mask 10.0 01/08/17 17:32 146 14 141/78 100 Simple Mask 10 01/08/17 15:40 101.8 90 12 122/61 95 Room Air 101.8 01/08/17 15:00 98.1 83 14 111/65 (80) 94 Room Air 98.1 01/08/17 14:43 Room Air 01/08/17 11:02 98.1 83 14 111/65 (80) 94 Room Air 98.1 01/08/17 10:48 Room Air 01/08/17 08:05 Room Air 01/08/17 08:05 93 113/63 I & O Intake and Output 01/09/17 07:00 Intake Total 1410 ml Output Total 500 ml Balance 910 ml Intake Oral 10 ml IV Total 1400 ml Output Urine Total 500 ml PHYSICAL EXAM Physical Exam General: Alert, Oriented X3, Cooperative, No acute distress HEENT: Atraumatic, PERRLA, EOMI, Mucous membr. moist/pink Lungs: Clear to auscultation, Normal air movement Heart: RRR, no thrills, no rubs, no gallops, no murmurs Abdomen: Normal bowel sounds, Soft, No tenderness, No hepatosplenomegaly Extremities: Other (large ecchymosis left shoulder/arm, arm currently bandaged , several small ecchymoses seen on arms ), left arm in sling Neuro: Sensation intact, Cranial nerves 3-12 NL Psych/Mental Status: pt confused this morning, normal mood and affect ASSESSMENT/PLAN Assessment/Plan Pt is a 76yo CM admitted with left humeral fracture after fall 1)Left humeral fracture- Ortho following, pt now s/p ORIF. 2)Thrombocytopenia- acute on chronic with significant bruising left arm from fall. Repeat labs pending 3)Hyponatremia- 2/2 dehydration, resolved after receiving IVF hydration. 4)Anemia- acute on chronic. Worsening likely 2/2 traumatic bleeding from fall. Repeat pending 5)Hyperglycemia- normal HbA1C this admission 6)PEM- severe. 7)Dementia- pt continued on Aricept 8)GERD- pt continued on Pantoprazole 9)Chronic back pain- with Gómez quentin placement. Pt continued on MS Contin 60mg BID and Oxycodone 10mg q6H prn 10)HTN- well controlled. Pt continued on Lisinopril 40mg 11)COPD- stable. Pt continued on Duonebs and Albuterol inhaler. Problems: COMMENT Lab Laboratory Tests Test 01/08/17 08:55 White Blood Count 5.2 x10^3/uL (4.0-11.0) Red Blood Count 2.29 x10^6/uL (4.30-5.70) Hemoglobin 7.9 g/dL (13.0-17.5) Hematocrit 22.5 % (39.0-53.0) Mean Corpuscular Volume 98 fL (79-100) Mean Corpuscular Hemoglobin 34 pg (25-35) Mean Corpuscular Hemoglobin Concent 35 g/dL (31-37) Red Cell Distribution Width 12.9 % (11.5-14.5) Platelet Count 57 x10^3/uL (140-400) Sodium Level 137 mmol/L (136-145) Potassium Level 3.5 mmol/L (3.5-5.1) Chloride Level 104 mmol/L (98-107) Carbon Dioxide Level 26 mmol/L (21-32) Anion Gap 7 (6-14) Blood Urea Nitrogen 9 mg/dL (8-26) Creatinine 0.6 mg/dL (0.7-1.3) Estimated GFR (Cockcroft-Gault) 131.3 Glucose Level 100 mg/dL (70-99) Calcium Level 7.5 mg/dL (8.5-10.1) HUDSON JEFFERS MD January 09, 2017 08:04
[2017-01-09 08:37] LABS: HEMATOCRIT 23.3 % (39.0-53.0); HEMOGLOBIN 7.9 g/dL (13.0-17.5); RED BLOOD COUNT 2.33 x10^6/uL (4.30-5.70); WHITE BLOOD COUNT 5.1 x10^3/uL (4.0-11.0)
[2017-01-09] MEDS: DONEPEZIL HCL 10 MG TABLET. PO SCH (08:39)
[2017-01-09] MEDS: MORPHINE ER 30 MG TABLET.ER PO SCH ×2 (08:40→21:01)
[2017-01-09] MEDS: PANTOPRAZOLE 40 MG TABLET.DR. PO SCH (08:40)
[2017-01-09] MEDS: LISINOPRIL 40 MG TABLET. PO SCH (09:00)
[2017-01-09 11:15] VITALS: BP 116/54
[2017-01-09 15:09] VITALS: BP 121/60
[2017-01-09 19:00] VITALS: BP 99/61
[2017-01-09] MEDS: traZODone 100 MG TABLET. PO SCH (21:00)
[2017-01-09] MEDS: TAMSULOSIN 0.4 MG CAP.ER.24H. PO SCH (21:00)
[2017-01-09 23:06] VITALS: BP 97/57
[2017-01-10 03:00] VITALS: BP 114/76
[2017-01-10 07:00] VITALS: BP 102/52
[2017-01-10] MEDS: BUDESONIDE 0.5 MG/2 ML NEBU. NEB SCH ×2 (07:13→20:00)
[2017-01-10] MEDS: IPRATRPIUM/ALBUTEROL 0.5/2.5MG 3 ML NEBU. NEB SCH ×4 (07:13→20:00)
--- NOTE | 2017-01-10 08:07 | PDOC ---
SUBJECTIVE Subjective Pt states that he is in pretty significant pain. Eating okay and otherwise doing well. OBJECTIVE Vital Signs Vital Signs Date Time Temp Pulse Resp B/P (MAP) Pulse Ox O2 Delivery O2 Flow Rate FiO2 01/10/17 07:14 93 Room Air 01/10/17 07:00 Room Air 01/10/17 07:00 98.6 92 18 102/52 (69) 93 Room Air 98.6 01/10/17 03:00 98.2 68 18 114/76 (89) 96 Room Air 98.2 01/10/17 01:01 18 Room Air 01/10/17 00:12 18 Room Air 01/09/17 23:12 18 Room Air 01/09/17 23:06 98.1 92 18 97/57 (70) 98 Room Air 98.1 01/09/17 21:01 18 Room Air 01/09/17 20:24 97 Room Air 01/09/17 20:21 97 Room Air 01/09/17 19:30 Room Air 01/09/17 19:00 97.8 100 18 99/61 (74) 98 Room Air 97.8 01/09/17 15:25 Room Air 01/09/17 15:16 97 Room Air 01/09/17 15:09 97.3 73 18 121/60 (80) 95 Room Air 97.3 01/09/17 11:15 97.6 90 116/54 (74) 96 Room Air 97.6 01/09/17 11:01 95 Room Air 01/09/17 08:40 Room Air I & O Intake and Output 01/10/17 07:00 Intake Total 1080 ml Output Total 1050 ml Balance 30 ml Intake Oral 1080 ml Output Urine Total 1050 ml PHYSICAL EXAM Physical Exam General: Alert, Oriented X3, Cooperative, No acute distress HEENT: Atraumatic, PERRLA, EOMI, Mucous membr. moist/pink Lungs: Clear to auscultation, Normal air movement Heart: RRR, no thrills, no rubs, no gallops, no murmurs Abdomen: Normal bowel sounds, Soft, No tenderness, No hepatosplenomegaly Extremities: Other (large ecchymosis left shoulder/arm, arm currently bandaged , several small ecchymoses seen on arms ), left arm in sling Neuro: Sensation intact, Cranial nerves 3-12 NL Psych/Mental Status: normal mood and affect ASSESSMENT/PLAN Assessment/Plan Pt is a 76yo CM admitted with left humeral fracture after fall 1)Left humeral fracture- Ortho following, pt now s/p ORIF post op day 2. Will plan on discharge to SNF 2)Thrombocytopenia- acute on chronic with significant bruising left arm from fall. Stable from admission 3)Hyponatremia- 2/2 dehydration, resolved after receiving IVF hydration. 4)Anemia- acute on chronic. Worsened likely 2/2 traumatic bleeding from fall. Stable from admission 5)Hyperglycemia- normal HbA1C this admission 6)PEM- severe. 7)Dementia- pt continued on Aricept 8)GERD- pt continued on Pantoprazole 9)Chronic back pain- with Gómez quentin placement. Pt continued on MS Contin 60mg BID and Oxycodone 10mg q6H prn 10)HTN- well controlled. Pt continued on Lisinopril 40mg 11)COPD- stable. Pt continued on Duonebs and Albuterol inhaler. Problems: HUDSON JEFFERS MD January 10, 2017 08:07
[2017-01-10] MEDS: MORPHINE ER 30 MG TABLET.ER PO SCH ×2 (08:32→20:57)
[2017-01-10] MEDS: LISINOPRIL 40 MG TABLET. PO SCH (08:32)
[2017-01-10] MEDS: DONEPEZIL HCL 10 MG TABLET. PO SCH (08:32)
[2017-01-10] MEDS: PANTOPRAZOLE 40 MG TABLET.DR. PO SCH (08:32)
[2017-01-10] MEDS: oxyCODONE IR 5 MG TABLET PO PRN (10:20)
[2017-01-10 11:00] VITALS: BP 91/49
[2017-01-10 15:00] VITALS: BP 92/49
[2017-01-10 19:15] VITALS: BP 110/57
[2017-01-10] MEDS: TAMSULOSIN 0.4 MG CAP.ER.24H. PO SCH (20:57)
[2017-01-10] MEDS: traZODone 100 MG TABLET. PO SCH (20:57)
[2017-01-10 22:54] VITALS: BP 91/50
[2017-01-11] VITALS (14 sets, daily range): BP systolic 93–116; BP diastolic 47–65
[2017-01-11] MEDS: IPRATRPIUM/ALBUTEROL 0.5/2.5MG 3 ML NEBU. NEB SCH ×4 (07:27→19:38)
[2017-01-11] MEDS: BUDESONIDE 0.5 MG/2 ML NEBU. NEB SCH ×2 (07:28→19:38)
[2017-01-11] MEDS: PANTOPRAZOLE 40 MG TABLET.DR. PO SCH (08:30)
[2017-01-11] MEDS: DONEPEZIL HCL 10 MG TABLET. PO SCH (08:31)
[2017-01-11] MEDS: MORPHINE ER 30 MG TABLET.ER PO SCH ×2 (08:31→21:27)
[2017-01-11] MEDS: LISINOPRIL 40 MG TABLET. PO SCH (08:31)
--- NOTE | 2017-01-11 14:28 | PDOC ---
PROGRESS NOTES Subjective Subjective Patient very lethargic today. Nurse reports improve po fluids. Urine output poor. Objective Objective Vital Signs Date Time Temp Pulse Resp B/P (MAP) Pulse Ox O2 Delivery O2 Flow Rate FiO2 01/11/17 12:40 Room Air 01/11/17 11:00 98.6 65 18 101/50 (67) 91 98.6 01/08/17 21:30 2.0 Intake and Output 01/11/17 07:00 Intake Total 680 ml Output Total 850 ml Balance -170 ml Intake Oral 680 ml Output Urine Total 850 ml Physical Exam Abdomen: Normal bowel sounds Heart: Regular rate Extremities: No edema General: Other (sleepy) Lungs: Other Assessment Assessment Problems Medical Problems: (1) Shoulder fracture, left Status: Acute 1)Left humeral fracture- Ortho following, pt now s/p ORIF post op day 2. Will plan on discharge to SNF 2)Thrombocytopenia- acute on chronic with significant bruising left arm from fall. Stable from admission 3)Hyponatremia- 2/2 dehydration, resolved after receiving IVF hydration. 4)Anemia- acute on chronic. Worsened likely 2/2 traumatic bleeding from fall. Stable from admission 5)Hyperglycemia- normal HbA1C this admission 6)PEM- severe. 7)Dementia- pt continued on Aricept 8)GERD- pt continued on Pantoprazole 9)Chronic back pain- with Gómez quentin placement. Pt continued on MS Contin 60mg BID and Oxycodone 10mg q6H prn 10)HTN- well controlled. Pt continued on Lisinopril 40mg Plan Plan of Care Check CBC and BNP Continue PT/OT efforts Check bladder Scan. Comment Review of Relevant I have reviewed the following items varsha (where applicable) has been applied. Medications Current Medications Fentanyl Citrate (Fentanyl 2ml Vial) 75 mcg 1X ONCE IV Last administered on 04:27; Start 01/07/17 at 04:30; Stop 01/07/17 at 04:31; Status DC Ondansetron HCl (Zofran) 4 mg PRN Q8HRS PRN IV NAUSEA/VOMITING; Start 01/07/17 at 05:00; Stop 01/08/17 at 04:59; Status DC Fentanyl Citrate (Fentanyl 2ml Vial) 50 mcg PRN Q2HR PRN IV SEVERE PAIN Last administered on 01/08/17 04:55; Start 01/07/17 at 05:00; Stop 01/08/17 at 04:59; Status DC Donepezil HCl (Aricept) 10 mg DAILY PO Last administered on 01/11/17 08:31; Start 01/07/17 at 09:00 Lisinopril (Prinivil) 40 mg DAILY PO Last administered on 01/08/17 08:05; Start 01/07/17 at 09:00; Stop 01/11/17 at 14:21; Status DC Pantoprazole Sodium (Protonix) 40 mg DAILYAC PO Last administered on 01/11/17 08:30; Start 01/07/17 at 09:00 Tamsulosin HCl (Flomax) 0.4 mg QHS PO Last administered on 01/10/17 20:57; Start 01/07/17 at 21:00 Trazodone HCl (Desyrel) 100 mg QHS PO Last administered on 01/10/17 20:57; Start 01/07/17 at 21:00 Non-Formulary Medication 1 each BID IH ; Start 01/07/17 at 09:00; Status UNV Non-Formulary Medication 4 gm QID IH ; Start 01/07/17 at 09:00; Status UNV Morphine Sulfate (Ms Contin) 60 mg BID PO Last administered on 01/11/17 08:31; Start 01/07/17 at 09:00 Oxycodone HCl (Roxicodone) 10 mg PRN Q6HRS PRN PO PAIN Last administered on 01/10 10:20; Start 01/07/17 at 08:30 Albuterol/ Ipratropium (Duoneb) 3 ml RTQID NEB Last administered on 01/11/17 10 :43; Start 01/07/17 at 09:00 Budesonide (Pulmicort) 0.5 mg RTBID NEB Last administered on 01/11/17 07:28; Start 01/07/17 at 09:00 Sodium Chloride 1,000 ml @ 100 mls/hr 1X ONCE IV Last administered on 09:28; Start 01/07/17 at 08:30; Stop 01/07/17 at 18:29; Status DC Fentanyl Citrate (Fentanyl 2ml Vial) 50 mcg PRN Q5MIN PRN IV Acute Pain Last administered on 5/3/17at 18:07; Start 01/07/17 at 20:15; Stop 01/08/17 at 20:14; Status DC Morphine Sulfate 4 mg PRN Q10MIN PRN IV Moderate Pain; Start 01/07/17 at 20:15; Stop 01/08/17 at 20:14; Status DC Hydromorphone HCl (Dilaudid) 0.4 mg PRN Q10MIN PRN IV Moderate to severe pain; Start 01/07/17 at 20:15; Stop 01/08/17 at 20:14; Status DC Meperidine HCl (Demerol) 12.5 mg PRN Q5MIN PRN IV SHIVERING; Start 01/07/17 at 20:15; Stop 01/08/17 at 20:14; Status DC Prochlorperazine Edisylate (Compazine) 5 mg PRN Q6HRS PRN IV Nausea/Vomiting, 1st Choice; Start 01/07/17 at 20:15; Stop 01/08/17 at 20:14; Status DC Diphenhydramine HCl (Benadryl) 12.5 mg PRN Q2HR PRN IV ITCHING; Start 01/07/17 at 20:15; Stop 01/08/17 at 20:14; Status DC Midazolam HCl (Versed) 2 mg PRN 1X PRN IV PRIOR TO PROCEDURE; Start 01/07/17 at 20:15; Stop 01/08/17 at 20:14; Status DC Midazolam HCl (Versed) 1 mg PRN 1X PRN IV PRIOR TO PROCEDURE; Start 01/07/17 at 20:15; Stop 01/08/17 at 20:14; Status DC Fentanyl Citrate (Fentanyl 2ml Vial) 25 mcg PRN Q5MIN PRN IV X 2 DOSES FOR PAIN ; Start 01/07/17 at 20:15; Stop 01/08/17 at 20:14; Status DC Fentanyl Citrate (Fentanyl 2ml Vial) 50 mcg PRN Q5MIN PRN IV X 2 DOSES FOR PAIN ; Start 01/07/17 at 20:15; Stop 01/08/17 at 20:14; Status DC Lidocaine HCl 2 ml 1X PRN PRN ID IV START; Start 01/07/17 at 20:15; Stop at 20:14; Status DC Propofol 20 ml @ As Directed STK-MED ONCE IV ; Start 01/08/17 at 14:45; Stop 01/08 at 14:46; Status DC Lidocaine HCl (Lidocaine HCl 2% Abboject) 100 mg STK-MED ONCE .ROUTE ; Start 01/08/17 at 14:45; Stop 01/08/17 at 14:46; Status DC Ondansetron HCl (Zofran) 4 mg STK-MED ONCE .ROUTE ; Start 01/08/17 at 14:45; Stop 01/08/17 at 14:46; Status DC Dexamethasone Sodium Phosphate (Decadron) 20 mg STK-MED ONCE .ROUTE ; Start 01/08 at 14:45; Stop 01/08/17 at 14:46; Status DC Phenylephrine HCl 1 mg STK-MED ONCE IV ; Start 01/08/17 at 14:46; Stop 01/08/17 at 14:47; Status DC Ephedrine Sulfate 50 mg STK-MED ONCE IV ; Start 01/08/17 at 14:46; Stop 01/08/17 at 14:47; Status DC Fentanyl Citrate (Fentanyl 5ml Vial) 250 mcg STK-MED ONCE .ROUTE ; Start at 14:47; Stop 01/08/17 at 14:48; Status DC Rocuronium [place] (Zemuron) 50 mg STK-MED ONCE .ROUTE ; Start 01/08/17 at 14:47 ; Stop 01/08/17 at 14:48; Status DC Succinylcholine Chloride (Anectine) 200 mg STK-MED ONCE .ROUTE ; Start 01/08/17 at 15:25; Stop 01/08/17 at 15:26; Status DC Cefazolin Sodium/ Dextrose 50 ml @ As Directed STK-MED ONCE IV ; Start 01/08/17 at 15:44; Stop 01/08/17 at 15:45; Status DC Phenylephrine HCl (Da-Synephrine Inj) 10 mg STK-MED ONCE .ROUTE ; Start at 16:14; Stop 01/08/17 at 16:15; Status DC Desflurane (Suprane) 90 ml STK-MED ONCE IH ; Start 01/08/17 at 17:05; Stop at 17:06; Status DC Neostigmine Methylsulfate 5 mg STK-MED ONCE .ROUTE ; Start 01/08/17 at 17:08; Stop 01/08/17 at 17:09; Status DC Glycopyrrolate (Robinul) 1 mg STK-MED ONCE .ROUTE ; Start 01/08/17 at 17:09; Stop 01/08/17 at 17:10; Status DC Lisinopril (Prinivil) 20 mg DAILY PO ; Start 01/12/17 at 09:00; Status UNV Active Scripts Active Flomax (Tamsulosin Hcl) 0.4 Mg Cap.er.24h 0.4 Mg PO QHS Levaquin (Levofloxacin) 500 Mg Tablet 500 Mg PO DAILY06 Protonix (Pantoprazole Sodium) 40 Mg Tablet 40 Mg PO DAILYAC Reported Morphine Sulfate Cr (Morphine Sulfate) 60 Mg Tablet.er 60 Mg PO TID Generlac (Lactulose) 10 Gm/15 Ml Solution 10 Gm PO BID Vitamin D2 (Ergocalciferol (Vitamin D2)) 50,000 Unit Capsule 50,000 Unit PO WEEKLY Aspir 81 (Aspirin) 81 Mg Tablet.dr 81 Mg PO DAILY Advair 100-50 Diskus (Fluticasone/Salmeterol) 1 Each Disk.w.dev 1 Each IH BID Combivent Respimat Inhal (Ipratropium/Albuterol Sulfate) 4 Gm Aer.w.adap 4 Gm IH QID Aricept (Donepezil Hcl) 10 Mg Tablet 10 Mg PO DAILY Percocet 10-325 Mg Tablet (Oxycodone/Acetaminophen) 1 Each Tablet 1 Each PO QID Lisinopril 40 Mg Tablet 40 Mg PO DAILY Trazodone Hcl 100 Mg Tablet 100 Mg PO 1X Vitals/I & O Vital Sign - Last 24 Hours 01/10/17 01/10/17 01/10/17 01/10/17 14:48 15:00 19:15 20:00 Temp 98.4 97.7 98.4 97.7 Pulse 87 76 Resp 18 18 B/P (MAP) 92/49 (63) 110/57 (74) Pulse Ox 93 97 O2 Delivery Room Air Room Air Room Air Room Air 01/10/17 01/10/17 01/11/17 01/11/17 20:57 22:54 00:57 03:21 Temp 98.5 99.3 98.5 99.3 Pulse 78 83 Resp 20 18 20 18 B/P (MAP) 91/50 (64) 93/55 (68) Pulse Ox 97 94 94 92 O2 Delivery Room Air Room Air Room Air 01/11/17 01/11/17 01/11/17 01/11/17 07:00 07:00 07:29 07:31 Temp 97.9 97.9 Pulse 79 Resp 18 B/P (MAP) 107/56 (73) Pulse Ox 92 O2 Delivery Room Air Room Air Room Air Room Air 01/11/17 01/11/17 01/11/17 01/11/17 08:31 08:31 10:43 11:00 Temp 98.6 98.6 Pulse 79 65 Resp 18 B/P (MAP) 107/56 101/50 (67) Pulse Ox 91 O2 Delivery Room Air Room Air Room Air 01/11/17 12:40 O2 Delivery Room Air Intake and Output 01/10/17 01/10/17 01/11/17 15:00 23:00 07:00 Intake Total 240 ml 120 ml 320 ml Output Total 600 ml 250 ml Balance -360 ml -130 ml 320 ml TEODORA SHARP MD January 11, 2017 14:28
[2017-01-11] MEDS ORDERED: IV NORMAL SALINE 250ML 250 ML IV ONE (15:00)
[2017-01-11] MEDS: LISINOPRIL 20 MG TABLET PO SCH (15:00)
[2017-01-11 15:04] LABS: HEMOGLOBIN 7.3 g/dL (13.0-17.5); RED BLOOD COUNT 2.11 x10^6/uL (4.30-5.70); RED CELL DISTRIBUTION WIDTH 13.1 % (11.5-14.5); WHITE BLOOD COUNT 5.2 x10^3/uL (4.0-11.0)
[2017-01-11 15:08] LABS: HEMATOCRIT 20.6 % (39.0-53.0)
[2017-01-11] MEDS ORDERED: FUROSEMIDE 40 MG/4 ML VIAL. IV PRN (15:15)
[2017-01-11] MEDS: IV NORMAL SALINE 1000ML BAG 1,000 ML IV SCH (15:29)
[2017-01-11 17:36] LABS: CALCIUM 7.5 mg/dL (8.5-10.1); CREATININE 0.6 mg/dL (0.7-1.3); GFR 131.3; POTASSIUM 4.2 mmol/L (3.5-5.1)
[2017-01-11] MEDS: TAMSULOSIN 0.4 MG CAP.ER.24H. PO SCH (21:27)
[2017-01-11] MEDS: traZODone 100 MG TABLET. PO SCH (21:27)
[2017-01-12] VITALS (9 sets, daily range): BP systolic 104–134; BP diastolic 58–76
[2017-01-12] MEDS: IV NORMAL SALINE 1000ML BAG 1,000 ML IV SCH ×3 (01:00→16:08)
[2017-01-12 06:12] LABS: BASO % 1 % (0-3); EOS % 3 % (0-3); HEMATOCRIT 28.8 % (39.0-53.0); HEMOGLOBIN 10.2 g/dL (13.0-17.5); LYMPH % 17 % (24-48); MEAN CORPUSCULAR HEMOGLOBIN 33 pg (25-35); MEAN CORPUSCULAR HGB CONC 35 g/dL (31-37); MEAN CORPUSCULAR VOLUME 95 fL (79-100); MONO % 11 % (0-9); NEUT % 67 % (31-73); PLATELET COUNT 110 x10^3/uL (140-400); RED BLOOD COUNT 3.05 x10^6/uL (4.30-5.70); RED CELL DISTRIBUTION WIDTH 14.9 % (11.5-14.5); WHITE BLOOD COUNT 5.7 x10^3/uL (4.0-11.0)
[2017-01-12 06:27] LABS: CALCIUM 7.6 mg/dL (8.5-10.1); CREATININE 0.6 mg/dL (0.7-1.3); GFR 131.3
[2017-01-12] MEDS: BUDESONIDE 0.5 MG/2 ML NEBU. NEB SCH ×2 (06:45→17:54)
[2017-01-12] MEDS: IPRATRPIUM/ALBUTEROL 0.5/2.5MG 3 ML NEBU. NEB SCH ×4 (08:00→17:54)
[2017-01-12] MEDS: PANTOPRAZOLE 40 MG TABLET.DR. PO SCH (08:18)
[2017-01-12] MEDS: LISINOPRIL 20 MG TABLET PO SCH (08:18)
[2017-01-12] MEDS: DONEPEZIL HCL 10 MG TABLET. PO SCH (08:18)
[2017-01-12] MEDS: MORPHINE ER 30 MG TABLET.ER PO SCH ×2 (08:19→21:16)
[2017-01-12] MEDS: oxyCODONE IR 5 MG TABLET PO PRN ×2 (09:55→16:07)
--- NOTE | 2017-01-12 12:47 | PDOC ---
PROGRESS NOTES Subjective Subjective Patient doing much better today except he has developed gross hematuria. Yesterday progressive anemia was noted and patient was transfused. Urology consulted patient to Rehab in am if stable. Objective Objective Vital Signs Date Time Temp Pulse Resp B/P (MAP) Pulse Ox O2 Delivery O2 Flow Rate FiO2 01/12/17 12:21 Room Air 01/12/17 11:00 97.7 76 18 116/63 (80) 94 97.7 01/08/17 21:30 2.0 Intake and Output 01/12/17 07:00 Intake Total 0 ml Output Total 3000 ml Balance -3000 ml Intake Oral 0 ml Output Urine Total 3000 ml Physical Exam Abdomen: Normal bowel sounds Heart: Regular rate Extremities: No edema General: Alert Lungs: Other (Course) Assessment Assessment Problems Medical Problems: (1) Shoulder fracture, left Status: Acute 1)Left humeral fracture- s/p ORIF 2)Thrombocytopenia- acute on chronic 3)New onset hematuria 4)Anemia- acute on chronic. 5)Hyperglycemia 6)PEM 7)Dementia 8)GERD 9)Chronic back pain- with Gómez quentin placement. 10)HTN Plan Plan of Care Check CBC in am continue PT/OT efforts To SNU when stable possibly tomorrow Comment Review of Relevant I have reviewed the following items varsha (where applicable) has been applied. Labs Laboratory Tests Test 01/11/17 14:50 01/12/17 05:20 01/12/17 05:50 White Blood Count 5.2 x10^3/uL (4.0-11.0) 5.7 x10^3/uL (4.0-11.0) Red Blood Count 2.11 x10^6/uL (4.30-5.70) 3.05 x10^6/uL (4.30-5.70) Hemoglobin 7.3 g/dL (13.0-17.5) 10.2 g/dL (13.0-17.5) Hematocrit 20.6 % (39.0-53.0) 28.8 % (39.0-53.0) Mean Corpuscular Volume 98 fL (79-100) 95 fL (79-100) Mean Corpuscular Hemoglobin 35 pg (25-35) 33 pg (25-35) Mean Corpuscular Hemoglobin Concent 35 g/dL (31-37) 35 g/dL (31-37) Red Cell Distribution Width 13.1 % (11.5-14.5) 14.9 % (11.5-14.5) Platelet Count 134 x10^3/uL (140-400) 110 x10^3/uL (140-400) Sodium Level 134 mmol/L (136-145) 136 mmol/L (136-145) Potassium Level 4.2 mmol/L (3.5-5.1) 4.0 mmol/L (3.5-5.1) Chloride Level 102 mmol/L (98-107) 102 mmol/L (98-107) Carbon Dioxide Level 30 mmol/L (21-32) 30 mmol/L (21-32) Anion Gap 2 (6-14) 4 (6-14) Blood Urea Nitrogen 12 mg/dL (8-26) 12 mg/dL (8-26) Creatinine 0.6 mg/dL (0.7-1.3) 0.6 mg/dL (0.7-1.3) Estimated GFR (Cockcroft-Gault) 131.3 131.3 Glucose Level 93 mg/dL (70-99) 83 mg/dL (70-99) Calcium Level 7.5 mg/dL (8.5-10.1) 7.6 mg/dL (8.5-10.1) Neutrophils (%) (Auto) 67 % (31-73) Lymphocytes (%) (Auto) 17 % (24-48) Monocytes (%) (Auto) 11 % (0-9) Eosinophils (%) (Auto) 3 % (0-3) Basophils (%) (Auto) 1 % (0-3) Neutrophils # (Auto) 3.9 x10^3uL (1.8-7.7) Lymphocytes # (Auto) 1.0 x10^3/uL (1.0-4.8) Monocytes # (Auto) 0.7 x10^3/uL (0.0-1.1) Eosinophils # (Auto) 0.2 x10^3/uL (0.0-0.7) Basophils # (Auto) 0.0 x10^3/uL (0.0-0.2) Laboratory Tests Test 01/11/17 14:50 01/12/17 05:20 5/7/17 05:50 White Blood Count 5.2 x10^3/uL (4.0-11.0) 5.7 x10^3/uL (4.0-11.0) Red Blood Count 2.11 x10^6/uL (4.30-5.70) 3.05 x10^6/uL (4.30-5.70) Hemoglobin 7.3 g/dL (13.0-17.5) 10.2 g/dL (13.0-17.5) Hematocrit 20.6 % (39.0-53.0) 28.8 % (39.0-53.0) Mean Corpuscular Volume 98 fL (79-100) 95 fL (79-100) Mean Corpuscular Hemoglobin 35 pg (25-35) 33 pg (25-35) Mean Corpuscular Hemoglobin Concent 35 g/dL (31-37) 35 g/dL (31-37) Red Cell Distribution Width 13.1 % (11.5-14.5) 14.9 % (11.5-14.5) Platelet Count 134 x10^3/uL (140-400) 110 x10^3/uL (140-400) Sodium Level 134 mmol/L (136-145) 136 mmol/L (136-145) Potassium Level 4.2 mmol/L (3.5-5.1) 4.0 mmol/L (3.5-5.1) Chloride Level 102 mmol/L (98-107) 102 mmol/L (98-107) Carbon Dioxide Level 30 mmol/L (21-32) 30 mmol/L (21-32) Anion Gap 2 (6-14) 4 (6-14) Blood Urea Nitrogen 12 mg/dL (8-26) 12 mg/dL (8-26) Creatinine 0.6 mg/dL (0.7-1.3) 0.6 mg/dL (0.7-1.3) Estimated GFR (Cockcroft-Gault) 131.3 131.3 Glucose Level 93 mg/dL (70-99) 83 mg/dL (70-99) Calcium Level 7.5 mg/dL (8.5-10.1) 7.6 mg/dL (8.5-10.1) Neutrophils (%) (Auto) 67 % (31-73) Lymphocytes (%) (Auto) 17 % (24-48) Monocytes (%) (Auto) 11 % (0-9) Eosinophils (%) (Auto) 3 % (0-3) Basophils (%) (Auto) 1 % (0-3) Neutrophils # (Auto) 3.9 x10^3uL (1.8-7.7) Lymphocytes # (Auto) 1.0 x10^3/uL (1.0-4.8) Monocytes # (Auto) 0.7 x10^3/uL (0.0-1.1) Eosinophils # (Auto) 0.2 x10^3/uL (0.0-0.7) Basophils # (Auto) 0.0 x10^3/uL (0.0-0.2) Medications Current Medications Fentanyl Citrate (Fentanyl 2ml Vial) 75 mcg 1X ONCE IV Last administered on 04:27; Start 01/07/17 at 04:30; Stop 01/07/17 at 04:31; Status DC Ondansetron HCl (Zofran) 4 mg PRN Q8HRS PRN IV NAUSEA/VOMITING; Start 01/07/17 at 05:00; Stop 01/08/17 at 04:59; Status DC Fentanyl Citrate (Fentanyl 2ml Vial) 50 mcg PRN Q2HR PRN IV SEVERE PAIN Last administered on 01/08/17 04:55; Start 01/07/17 at 05:00; Stop 01/08/17 at 04:59; Status DC Donepezil HCl (Aricept) 10 mg DAILY PO Last administered on 01/12/17 08:18; Start 01/07/17 at 09:00 Lisinopril (Prinivil) 40 mg DAILY PO Last administered on 01/08/17 08:05; Start 01/07/17 at 09:00; Stop 01/11/17 at 14:21; Status DC Pantoprazole Sodium (Protonix) 40 mg DAILYAC PO Last administered on 01/12/17 08:18; Start 01/07/17 at 09:00 Tamsulosin HCl (Flomax) 0.4 mg QHS PO Last administered on 01/11/17 21:27; Start 01/07/17 at 21:00 Trazodone HCl (Desyrel) 100 mg QHS PO Last administered on 01/11/17 21:27; Start 01/07/17 at 21:00 Non-Formulary Medication 1 each BID IH ; Start 01/07/17 at 09:00; Status UNV Non-Formulary Medication 4 gm QID IH ; Start 01/07/17 at 09:00; Status UNV Morphine Sulfate (Ms Contin) 60 mg BID PO Last administered on 01/12/17 08:19; Start 01/07/17 at 09:00 Oxycodone HCl (Roxicodone) 10 mg PRN Q6HRS PRN PO PAIN Last administered on 01/12 09:55; Start 01/07/17 at 08:30 Albuterol/ Ipratropium (Duoneb) 3 ml RTQID NEB Last administered on 01/12/17 10 :43; Start 01/07/17 at 09:00 Budesonide (Pulmicort) 0.5 mg RTBID NEB Last administered on 01/12/17 06:45; Start 01/07/17 at 09:00 Sodium Chloride 1,000 ml @ 100 mls/hr 1X ONCE IV Last administered on 09:28; Start 01/07/17 at 08:30; Stop 01/07/17 at 18:29; Status DC Fentanyl Citrate (Fentanyl 2ml Vial) 50 mcg PRN Q5MIN PRN IV Acute Pain Last administered on 01/08/17 18:07; Start 01/07/17 at 20:15; Stop 01/08/17 at 20:14; Status DC Morphine Sulfate 4 mg PRN Q10MIN PRN IV Moderate Pain; Start 01/07/17 at 20:15; Stop 01/08/17 at 20:14; Status DC Hydromorphone HCl (Dilaudid) 0.4 mg PRN Q10MIN PRN IV Moderate to severe pain; Start 01/07/17 at 20:15; Stop 01/08/17 at 20:14; Status DC Meperidine HCl (Demerol) 12.5 mg PRN Q5MIN PRN IV SHIVERING; Start 01/07/17 at 20:15; Stop 01/08/17 at 20:14; Status DC Prochlorperazine Edisylate (Compazine) 5 mg PRN Q6HRS PRN IV Nausea/Vomiting, 1st Choice; Start 01/07/17 at 20:15; Stop 01/08/17 at 20:14; Status DC Diphenhydramine HCl (Benadryl) 12.5 mg PRN Q2HR PRN IV ITCHING; Start 01/07/17 at 20:15; Stop 01/08/17 at 20:14; Status DC Midazolam HCl (Versed) 2 mg PRN 1X PRN IV PRIOR TO PROCEDURE; Start 01/07/17 at 20:15; Stop 01/08/17 at 20:14; Status DC Midazolam HCl (Versed) 1 mg PRN 1X PRN IV PRIOR TO PROCEDURE; Start 01/07/17 at 20:15; Stop 01/08/17 at 20:14; Status DC Fentanyl Citrate (Fentanyl 2ml Vial) 25 mcg PRN Q5MIN PRN IV X 2 DOSES FOR PAIN ; Start 01/07/17 at 20:15; Stop 01/08/17 at 20:14; Status DC Fentanyl Citrate (Fentanyl 2ml Vial) 50 mcg PRN Q5MIN PRN IV X 2 DOSES FOR PAIN ; Start 01/07/17 at 20:15; Stop 01/08/17 at 20:14; Status DC Lidocaine HCl 2 ml 1X PRN PRN ID IV START; Start 01/07/17 at 20:15; Stop at 20:14; Status DC Propofol 20 ml @ As Directed STK-MED ONCE IV ; Start 01/08/17 at 14:45; Stop 01/08 at 14:46; Status DC Lidocaine HCl (Lidocaine HCl 2% Abboject) 100 mg STK-MED ONCE .ROUTE ; Start 01/08/17 at 14:45; Stop 01/08/17 at 14:46; Status DC Ondansetron HCl (Zofran) 4 mg STK-MED ONCE .ROUTE ; Start 01/08/17 at 14:45; Stop 01/08/17 at 14:46; Status DC Dexamethasone Sodium Phosphate (Decadron) 20 mg STK-MED ONCE .ROUTE ; Start 01/08 at 14:45; Stop 01/08/17 at 14:46; Status DC Phenylephrine HCl 1 mg STK-MED ONCE IV ; Start 01/08/17 at 14:46; Stop 01/08/17 at 14:47; Status DC Ephedrine Sulfate 50 mg STK-MED ONCE IV ; Start 01/08/17 at 14:46; Stop 01/08/17 at 14:47; Status DC Fentanyl Citrate (Fentanyl 5ml Vial) 250 mcg STK-MED ONCE .ROUTE ; Start at 14:47; Stop 01/08/17 at 14:48; Status DC Rocuronium [place] (Zemuron) 50 mg STK-MED ONCE .ROUTE ; Start 01/08/17 at 14:47 ; Stop 01/08/17 at 14:48; Status DC Succinylcholine Chloride (Anectine) 200 mg STK-MED ONCE .ROUTE ; Start 01/08/17 at 15:25; Stop 01/08/17 at 15:26; Status DC Cefazolin Sodium/ Dextrose 50 ml @ As Directed STK-MED ONCE IV ; Start 01/08/17 at 15:44; Stop 01/08/17 at 15:45; Status DC Phenylephrine HCl (Da-Synephrine Inj) 10 mg STK-MED ONCE .ROUTE ; Start at 16:14; Stop 01/08/17 at 16:15; Status DC Desflurane (Suprane) 90 ml STK-MED ONCE IH ; Start 01/08/17 at 17:05; Stop at 17:06; Status DC Neostigmine Methylsulfate 5 mg STK-MED ONCE .ROUTE ; Start 01/08/17 at 17:08; Stop 01/08/17 at 17:09; Status DC Glycopyrrolate (Robinul) 1 mg STK-MED ONCE .ROUTE ; Start 01/08/17 at 17:09; Stop 01/08/17 at 17:10; Status DC Lisinopril (Prinivil) 20 mg DAILY PO Last administered on 01/12/17 08:18; Start 01/11/17 at 15:00 Sodium Chloride 250 ml @ 250 mls/hr 1X ONCE IV Last administered on 01/11/17 15:00; Start 01/11/17 at 15:00; Stop 01/11/17 at 15:59; Status DC Sodium Chloride 1,000 ml @ 100 mls/hr Q10H IV Last administered on 01/12/17 06 :07; Start 01/11/17 at 15:00 Furosemide (Lasix) 40 mg 1X PRN PRN IV blood transfusion Last administered on t 21:27; Start 01/11/17 at 15:15; Stop 01/12/17 at 15:14 Active Scripts Active Flomax (Tamsulosin Hcl) 0.4 Mg Cap.er.24h 0.4 Mg PO QHS Levaquin (Levofloxacin) 500 Mg Tablet 500 Mg PO DAILY06 Protonix (Pantoprazole Sodium) 40 Mg Tablet 40 Mg PO DAILYAC Reported Morphine Sulfate Cr (Morphine Sulfate) 60 Mg Tablet.er 60 Mg PO TID Generlac (Lactulose) 10 Gm/15 Ml Solution 10 Gm PO BID Vitamin D2 (Ergocalciferol (Vitamin D2)) 50,000 Unit Capsule 50,000 Unit PO WEEKLY Aspir 81 (Aspirin) 81 Mg Tablet.dr 81 Mg PO DAILY Advair 100-50 Diskus (Fluticasone/Salmeterol) 1 Each Disk.w.dev 1 Each IH BID Combivent Respimat Inhal (Ipratropium/Albuterol Sulfate) 4 Gm Aer.w.adap 4 Gm IH QID Aricept (Donepezil Hcl) 10 Mg Tablet 10 Mg PO DAILY Percocet 10-325 Mg Tablet (Oxycodone/Acetaminophen) 1 Each Tablet 1 Each PO QID Lisinopril 40 Mg Tablet 40 Mg PO DAILY Trazodone Hcl 100 Mg Tablet 100 Mg PO 1X Vitals/I & O Vital Sign - Last 24 Hours 01/11/17 01/11/17 01/11/17 01/11/17 14:55 15:00 15:00 18:35 Temp 98.1 98.1 98.1 98.1 Pulse 70 75 Resp 18 20 B/P (MAP) 94/57 94/47 (63) 107/58 Pulse Ox 92 O2 Delivery Room Air Room Air 01/11/17 01/11/17 01/11/17 01/11/17 19:00 19:04 19:30 20:00 Temp 99.7 99.0 99.7 99.0 Pulse 79 83 Resp 16 24 B/P (MAP) 106/55 (72) 102/65 Pulse Ox 92 96 O2 Delivery Room Air Room Air Room Air 01/11/17 01/11/17 01/11/17 01/11/17 20:10 20:21 21:20 21:27 Temp 99.0 99.0 98.8 99.0 99.0 98.8 Pulse 75 75 74 Resp 18 18 18 18 B/P (MAP) 112/55 112/55 (74) 115/62 Pulse Ox 92 O2 Delivery Room Air Room Air 01/11/17 01/11/17 01/11/17 01/11/17 22:20 22:43 23:00 23:10 Temp 98.9 98.9 98.8 98.8 98.9 98.9 98.8 98.8 Pulse 84 84 82 82 Resp 18 18 18 18 B/P (MAP) 116/59 116/59 98/53 98/53 (68) Pulse Ox 93 O2 Delivery Room Air 01/12/17 01/12/17 01/12/17 01/12/17 00:00 01:05 02:10 03:00 Temp 98.8 98.3 98.5 97.9 98.8 98.3 98.5 97.9 Pulse 77 64 72 64 Resp 18 18 B/P (MAP) 104/69 107/74 114/58 113/58 (76) Pulse Ox 95 O2 Delivery Room Air 01/12/17 01/12/17 01/12/17 01/12/17 06:45 07:11 07:20 08:18 Temp 97.7 97.7 Pulse 70 70 Resp 20 B/P (MAP) 119/59 (79) 119/59 Pulse Ox 93 94 O2 Delivery Room Air Room Air Room Air 01/12/17 01/12/17 01/12/17 01/12/17 08:19 09:55 10:44 11:00 Temp 97.7 97.7 Pulse 76 Resp 18 B/P (MAP) 116/63 (80) Pulse Ox 94 O2 Delivery Room Air Room Air Room Air Room Air 01/12/17 01/12/17 11:08 12:21 O2 Delivery Room Air Room Air Intake and Output 01/11/17 01/11/17 01/12/17 15:00 23:00 07:00 Intake Total 0 ml Output Total 250 ml 2750 ml Balance -250 ml -2750 ml TEODORA SHARP MD January 12, 2017 12:47
--- NOTE | 2017-01-12 14:45 | PDOC ---
PROGRESS NOTES Subjective Subjective Problems overnight:shoulder feels better, not much appetite Objective Vital Signs Vital Signs Date Time Temp Pulse Resp B/P (MAP) Pulse Ox O2 Delivery O2 Flow Rate FiO2 01/12/17 12:21 Room Air 01/12/17 11:00 97.7 76 18 116/63 (80) 94 97.7 01/08/17 21:30 2.0 Physical Exam incision c/d/i neuro intact Labs Laboratory Tests Test 01/11/17 14:50 01/12/17 05:20 01/12/17 05:50 White Blood Count 5.2 x10^3/uL (4.0-11.0) 5.7 x10^3/uL (4.0-11.0) Red Blood Count 2.11 x10^6/uL (4.30-5.70) 3.05 x10^6/uL (4.30-5.70) Hemoglobin 7.3 g/dL (13.0-17.5) 10.2 g/dL (13.0-17.5) Hematocrit 20.6 % (39.0-53.0) 28.8 % (39.0-53.0) Mean Corpuscular Volume 98 fL (79-100) 95 fL (79-100) Mean Corpuscular Hemoglobin 35 pg (25-35) 33 pg (25-35) Mean Corpuscular Hemoglobin Concent 35 g/dL (31-37) 35 g/dL (31-37) Red Cell Distribution Width 13.1 % (11.5-14.5) 14.9 % (11.5-14.5) Platelet Count 134 x10^3/uL (140-400) 110 x10^3/uL (140-400) Sodium Level 134 mmol/L (136-145) 136 mmol/L (136-145) Potassium Level 4.2 mmol/L (3.5-5.1) 4.0 mmol/L (3.5-5.1) Chloride Level 102 mmol/L (98-107) 102 mmol/L (98-107) Carbon Dioxide Level 30 mmol/L (21-32) 30 mmol/L (21-32) Anion Gap 2 (6-14) 4 (6-14) Blood Urea Nitrogen 12 mg/dL (8-26) 12 mg/dL (8-26) Creatinine 0.6 mg/dL (0.7-1.3) 0.6 mg/dL (0.7-1.3) Estimated GFR (Cockcroft-Gault) 131.3 131.3 Glucose Level 93 mg/dL (70-99) 83 mg/dL (70-99) Calcium Level 7.5 mg/dL (8.5-10.1) 7.6 mg/dL (8.5-10.1) Neutrophils (%) (Auto) 67 % (31-73) Lymphocytes (%) (Auto) 17 % (24-48) Monocytes (%) (Auto) 11 % (0-9) Eosinophils (%) (Auto) 3 % (0-3) Basophils (%) (Auto) 1 % (0-3) Neutrophils # (Auto) 3.9 x10^3uL (1.8-7.7) Lymphocytes # (Auto) 1.0 x10^3/uL (1.0-4.8) Monocytes # (Auto) 0.7 x10^3/uL (0.0-1.1) Eosinophils # (Auto) 0.2 x10^3/uL (0.0-0.7) Basophils # (Auto) 0.0 x10^3/uL (0.0-0.2) Laboratory Tests Test 01/11/17 14:50 01/12/17 05:20 01/12/17 05:50 White Blood Count 5.2 x10^3/uL (4.0-11.0) 5.7 x10^3/uL (4.0-11.0) Red Blood Count 2.11 x10^6/uL (4.30-5.70) 3.05 x10^6/uL (4.30-5.70) Hemoglobin 7.3 g/dL (13.0-17.5) 10.2 g/dL (13.0-17.5) Hematocrit 20.6 % (39.0-53.0) 28.8 % (39.0-53.0) Mean Corpuscular Volume 98 fL (79-100) 95 fL (79-100) Mean Corpuscular Hemoglobin 35 pg (25-35) 33 pg (25-35) Mean Corpuscular Hemoglobin Concent 35 g/dL (31-37) 35 g/dL (31-37) Red Cell Distribution Width 13.1 % (11.5-14.5) 14.9 % (11.5-14.5) Platelet Count 134 x10^3/uL (140-400) 110 x10^3/uL (140-400) Sodium Level 134 mmol/L (136-145) 136 mmol/L (136-145) Potassium Level 4.2 mmol/L (3.5-5.1) 4.0 mmol/L (3.5-5.1) Chloride Level 102 mmol/L (98-107) 102 mmol/L (98-107) Carbon Dioxide Level 30 mmol/L (21-32) 30 mmol/L (21-32) Anion Gap 2 (6-14) 4 (6-14) Blood Urea Nitrogen 12 mg/dL (8-26) 12 mg/dL (8-26) Creatinine 0.6 mg/dL (0.7-1.3) 0.6 mg/dL (0.7-1.3) Estimated GFR (Cockcroft-Gault) 131.3 131.3 Glucose Level 93 mg/dL (70-99) 83 mg/dL (70-99) Calcium Level 7.5 mg/dL (8.5-10.1) 7.6 mg/dL (8.5-10.1) Neutrophils (%) (Auto) 67 % (31-73) Lymphocytes (%) (Auto) 17 % (24-48) Monocytes (%) (Auto) 11 % (0-9) Eosinophils (%) (Auto) 3 % (0-3) Basophils (%) (Auto) 1 % (0-3) Neutrophils # (Auto) 3.9 x10^3uL (1.8-7.7) Lymphocytes # (Auto) 1.0 x10^3/uL (1.0-4.8) Monocytes # (Auto) 0.7 x10^3/uL (0.0-1.1) Eosinophils # (Auto) 0.2 x10^3/uL (0.0-0.7) Basophils # (Auto) 0.0 x10^3/uL (0.0-0.2) Assessment Assessment POD# [], S/P [ORIF left proximal humerus fx] Problems: Plan Plan of Care PT/OT, gentle motion pendulums, fine motor use, out of sling as tolerated, no pushing up out of bed with left arm Ongoing medical mgmt and placement FLAKO WORKMAN MD January 12, 2017 14:45
--- NOTE | 2017-01-12 19:28 | PDOC ---
PROGRESS NOTES Subjective Subjective Pt. with urinary retention and hematuria s/p pfeiffer Objective Objective Vital Signs Date Time Temp Pulse Resp B/P (MAP) Pulse Ox O2 Delivery O2 Flow Rate FiO2 01/12/17 17:55 Room Air 01/12/17 15:00 97.9 72 18 121/64 (83) 95 97.9 01/08/17 21:30 2.0 Intake and Output 01/12/17 07:00 Intake Total 0 ml Output Total 3000 ml Balance -3000 ml Intake Oral 0 ml Output Urine Total 3000 ml Physical Exam Physical Exam pfeiffer in place good uo Plan Plan of Care keep pfeiffer flomax get sono voiding trial in 8 days Problems Medical Problems: (1) Shoulder fracture, left Status: Acute Comment Review of Relevant I have reviewed the following items varsha (where applicable) has been applied. Labs Laboratory Tests Test 01/11/17 14:50 01/12/17 05:20 01/12/17 05:50 White Blood Count 5.2 x10^3/uL (4.0-11.0) 5.7 x10^3/uL (4.0-11.0) Red Blood Count 2.11 x10^6/uL (4.30-5.70) 3.05 x10^6/uL (4.30-5.70) Hemoglobin 7.3 g/dL (13.0-17.5) 10.2 g/dL (13.0-17.5) Hematocrit 20.6 % (39.0-53.0) 28.8 % (39.0-53.0) Mean Corpuscular Volume 98 fL (79-100) 95 fL (79-100) Mean Corpuscular Hemoglobin 35 pg (25-35) 33 pg (25-35) Mean Corpuscular Hemoglobin Concent 35 g/dL (31-37) 35 g/dL (31-37) Red Cell Distribution Width 13.1 % (11.5-14.5) 14.9 % (11.5-14.5) Platelet Count 134 x10^3/uL (140-400) 110 x10^3/uL (140-400) Sodium Level 134 mmol/L (136-145) 136 mmol/L (136-145) Potassium Level 4.2 mmol/L (3.5-5.1) 4.0 mmol/L (3.5-5.1) Chloride Level 102 mmol/L (98-107) 102 mmol/L (98-107) Carbon Dioxide Level 30 mmol/L (21-32) 30 mmol/L (21-32) Anion Gap 2 (6-14) 4 (6-14) Blood Urea Nitrogen 12 mg/dL (8-26) 12 mg/dL (8-26) Creatinine 0.6 mg/dL (0.7-1.3) 0.6 mg/dL (0.7-1.3) Estimated GFR (Cockcroft-Gault) 131.3 131.3 Glucose Level 93 mg/dL (70-99) 83 mg/dL (70-99) Calcium Level 7.5 mg/dL (8.5-10.1) 7.6 mg/dL (8.5-10.1) Neutrophils (%) (Auto) 67 % (31-73) Lymphocytes (%) (Auto) 17 % (24-48) Monocytes (%) (Auto) 11 % (0-9) Eosinophils (%) (Auto) 3 % (0-3) Basophils (%) (Auto) 1 % (0-3) Neutrophils # (Auto) 3.9 x10^3uL (1.8-7.7) Lymphocytes # (Auto) 1.0 x10^3/uL (1.0-4.8) Monocytes # (Auto) 0.7 x10^3/uL (0.0-1.1) Eosinophils # (Auto) 0.2 x10^3/uL (0.0-0.7) Basophils # (Auto) 0.0 x10^3/uL (0.0-0.2) Laboratory Tests Test 01/12/17 05:20 01/12/17 05:50 White Blood Count 5.7 x10^3/uL (4.0-11.0) Red Blood Count 3.05 x10^6/uL (4.30-5.70) Hemoglobin 10.2 g/dL (13.0-17.5) Hematocrit 28.8 % (39.0-53.0) Mean Corpuscular Volume 95 fL (79-100) Mean Corpuscular Hemoglobin 33 pg (25-35) Mean Corpuscular Hemoglobin Concent 35 g/dL (31-37) Red Cell Distribution Width 14.9 % (11.5-14.5) Platelet Count 110 x10^3/uL (140-400) Neutrophils (%) (Auto) 67 % (31-73) Lymphocytes (%) (Auto) 17 % (24-48) Monocytes (%) (Auto) 11 % (0-9) Eosinophils (%) (Auto) 3 % (0-3) Basophils (%) (Auto) 1 % (0-3) Neutrophils # (Auto) 3.9 x10^3uL (1.8-7.7) Lymphocytes # (Auto) 1.0 x10^3/uL (1.0-4.8) Monocytes # (Auto) 0.7 x10^3/uL (0.0-1.1) Eosinophils # (Auto) 0.2 x10^3/uL (0.0-0.7) Basophils # (Auto) 0.0 x10^3/uL (0.0-0.2) Sodium Level 136 mmol/L (136-145) Potassium Level 4.0 mmol/L (3.5-5.1) Chloride Level 102 mmol/L (98-107) Carbon Dioxide Level 30 mmol/L (21-32) Anion Gap 4 (6-14) Blood Urea Nitrogen 12 mg/dL (8-26) Creatinine 0.6 mg/dL (0.7-1.3) Estimated GFR (Cockcroft-Gault) 131.3 Glucose Level 83 mg/dL (70-99) Calcium Level 7.6 mg/dL (8.5-10.1) Medications Current Medications Fentanyl Citrate (Fentanyl 2ml Vial) 75 mcg 1X ONCE IV Last administered on 04:27; Start 01/07/17 at 04:30; Stop 01/07/17 at 04:31; Status DC Ondansetron HCl (Zofran) 4 mg PRN Q8HRS PRN IV NAUSEA/VOMITING; Start 01/07/17 at 05:00; Stop 01/08/17 at 04:59; Status DC Fentanyl Citrate (Fentanyl 2ml Vial) 50 mcg PRN Q2HR PRN IV SEVERE PAIN Last administered on 01/08/17 04:55; Start 01/07/17 at 05:00; Stop 01/08/17 at 04:59; Status DC Donepezil HCl (Aricept) 10 mg DAILY PO Last administered on 01/12/17 08:18; Start 01/07/17 at 09:00 Lisinopril (Prinivil) 40 mg DAILY PO Last administered on 01/08/17 08:05; Start 01/07/17 at 09:00; Stop 01/11/17 at 14:21; Status DC Pantoprazole Sodium (Protonix) 40 mg DAILYAC PO Last administered on 01/12/17 08:18; Start 01/07/17 at 09:00 Tamsulosin HCl (Flomax) 0.4 mg QHS PO Last administered on 01/11/17 21:27; Start 01/07/17 at 21:00 Trazodone HCl (Desyrel) 100 mg QHS PO Last administered on 01/11/17 21:27; Start 01/07/17 at 21:00 Non-Formulary Medication 1 each BID IH ; Start 01/07/17 at 09:00; Status UNV Non-Formulary Medication 4 gm QID IH ; Start 01/07/17 at 09:00; Status UNV Morphine Sulfate (Ms Contin) 60 mg BID PO Last administered on 01/12/17 08:19; Start 01/07/17 at 09:00 Oxycodone HCl (Roxicodone) 10 mg PRN Q6HRS PRN PO PAIN Last administered on 01/12 16:07; Start 01/07/17 at 08:30 Albuterol/ Ipratropium (Duoneb) 3 ml RTQID NEB Last administered on 01/12/17 17 :54; Start 01/07/17 at 09:00 Budesonide (Pulmicort) 0.5 mg RTBID NEB Last administered on 01/12/17 17:54; Start 01/07/17 at 09:00 Sodium Chloride 1,000 ml @ 100 mls/hr 1X ONCE IV Last administered on 09:28; Start 01/07/17 at 08:30; Stop 01/07/17 at 18:29; Status DC Fentanyl Citrate (Fentanyl 2ml Vial) 50 mcg PRN Q5MIN PRN IV Acute Pain Last administered on 01/08/17 18:07; Start 01/07/17 at 20:15; Stop 01/08/17 at 20:14; Status DC Morphine Sulfate 4 mg PRN Q10MIN PRN IV Moderate Pain; Start 01/07/17 at 20:15; Stop 01/08/17 at 20:14; Status DC Hydromorphone HCl (Dilaudid) 0.4 mg PRN Q10MIN PRN IV Moderate to severe pain; Start 01/07/17 at 20:15; Stop 01/08/17 at 20:14; Status DC Meperidine HCl (Demerol) 12.5 mg PRN Q5MIN PRN IV SHIVERING; Start 01/07/17 at 20:15; Stop 01/08/17 at 20:14; Status DC Prochlorperazine Edisylate (Compazine) 5 mg PRN Q6HRS PRN IV Nausea/Vomiting, 1st Choice; Start 01/07/17 at 20:15; Stop 01/08/17 at 20:14; Status DC Diphenhydramine HCl (Benadryl) 12.5 mg PRN Q2HR PRN IV ITCHING; Start 01/07/17 at 20:15; Stop 01/08/17 at 20:14; Status DC Midazolam HCl (Versed) 2 mg PRN 1X PRN IV PRIOR TO PROCEDURE; Start 01/07/17 at 20:15; Stop 01/08/17 at 20:14; Status DC Midazolam HCl (Versed) 1 mg PRN 1X PRN IV PRIOR TO PROCEDURE; Start 01/07/17 at 20:15; Stop 01/08/17 at 20:14; Status DC Fentanyl Citrate (Fentanyl 2ml Vial) 25 mcg PRN Q5MIN PRN IV X 2 DOSES FOR PAIN ; Start 01/07/17 at 20:15; Stop 01/08/17 at 20:14; Status DC Fentanyl Citrate (Fentanyl 2ml Vial) 50 mcg PRN Q5MIN PRN IV X 2 DOSES FOR PAIN ; Start 01/07/17 at 20:15; Stop 01/08/17 at 20:14; Status DC Lidocaine HCl 2 ml 1X PRN PRN ID IV START; Start 01/07/17 at 20:15; Stop at 20:14; Status DC Propofol 20 ml @ As Directed STK-MED ONCE IV ; Start 01/08/17 at 14:45; Stop 01/08 at 14:46; Status DC Lidocaine HCl (Lidocaine HCl 2% Abboject) 100 mg STK-MED ONCE .ROUTE ; Start 01/08/17 at 14:45; Stop 01/08/17 at 14:46; Status DC Ondansetron HCl (Zofran) 4 mg STK-MED ONCE .ROUTE ; Start 01/08/17 at 14:45; Stop 01/08/17 at 14:46; Status DC Dexamethasone Sodium Phosphate (Decadron) 20 mg STK-MED ONCE .ROUTE ; Start 01/08 at 14:45; Stop 01/08/17 at 14:46; Status DC Phenylephrine HCl 1 mg STK-MED ONCE IV ; Start 01/08/17 at 14:46; Stop 01/08/17 at 14:47; Status DC Ephedrine Sulfate 50 mg STK-MED ONCE IV ; Start 01/08/17 at 14:46; Stop 01/08/17 at 14:47; Status DC Fentanyl Citrate (Fentanyl 5ml Vial) 250 mcg STK-MED ONCE .ROUTE ; Start at 14:47; Stop 01/08/17 at 14:48; Status DC Rocuronium [place] (Zemuron) 50 mg STK-MED ONCE .ROUTE ; Start 01/08/17 at 14:47 ; Stop 01/08/17 at 14:48; Status DC Succinylcholine Chloride (Anectine) 200 mg STK-MED ONCE .ROUTE ; Start 01/08/17 at 15:25; Stop 01/08/17 at 15:26; Status DC Cefazolin Sodium/ Dextrose 50 ml @ As Directed STK-MED ONCE IV ; Start 01/08/17 at 15:44; Stop 01/08/17 at 15:45; Status DC Phenylephrine HCl (Da-Synephrine Inj) 10 mg STK-MED ONCE .ROUTE ; Start at 16:14; Stop 01/08/17 at 16:15; Status DC Desflurane (Suprane) 90 ml STK-MED ONCE IH ; Start 01/08/17 at 17:05; Stop at 17:06; Status DC Neostigmine Methylsulfate 5 mg STK-MED ONCE .ROUTE ; Start 01/08/17 at 17:08; Stop 01/08/17 at 17:09; Status DC Glycopyrrolate (Robinul) 1 mg STK-MED ONCE .ROUTE ; Start 01/08/17 at 17:09; Stop 01/08/17 at 17:10; Status DC Lisinopril (Prinivil) 20 mg DAILY PO Last administered on 01/12/17 08:18; Start 01/11/17 at 15:00 Sodium Chloride 250 ml @ 250 mls/hr 1X ONCE IV Last administered on 01/11/17 15:00; Start 01/11/17 at 15:00; Stop 01/11/17 at 15:59; Status DC Sodium Chloride 1,000 ml @ 100 mls/hr Q10H IV Last administered on 01/12/17 16 :08; Start 01/11/17 at 15:00 Furosemide (Lasix) 40 mg 1X PRN PRN IV blood transfusion Last administered on 21:27; Start 01/11/17 at 15:15; Stop 01/12/17 at 15:14; Status DC Active Scripts Active Flomax (Tamsulosin Hcl) 0.4 Mg Cap.er.24h 0.4 Mg PO QHS Levaquin (Levofloxacin) 500 Mg Tablet 500 Mg PO DAILY06 Protonix (Pantoprazole Sodium) 40 Mg Tablet 40 Mg PO DAILYAC Reported Morphine Sulfate Cr (Morphine Sulfate) 60 Mg Tablet.er 60 Mg PO TID Generlac (Lactulose) 10 Gm/15 Ml Solution 10 Gm PO BID Vitamin D2 (Ergocalciferol (Vitamin D2)) 50,000 Unit Capsule 50,000 Unit PO WEEKLY Aspir 81 (Aspirin) 81 Mg Tablet.dr 81 Mg PO DAILY Advair 100-50 Diskus (Fluticasone/Salmeterol) 1 Each Disk.w.dev 1 Each IH BID Combivent Respimat Inhal (Ipratropium/Albuterol Sulfate) 4 Gm Aer.w.adap 4 Gm IH QID Aricept (Donepezil Hcl) 10 Mg Tablet 10 Mg PO DAILY Percocet 10-325 Mg Tablet (Oxycodone/Acetaminophen) 1 Each Tablet 1 Each PO QID Lisinopril 40 Mg Tablet 40 Mg PO DAILY Trazodone Hcl 100 Mg Tablet 100 Mg PO 1X Vitals/I & O Vital Sign - Last 24 Hours 01/11/17 01/11/17 01/11/17 01/11/17 19:30 20:00 20:10 20:21 Temp 99.0 99.0 99.0 99.0 Pulse 75 75 Resp 18 18 B/P (MAP) 112/55 112/55 (74) Pulse Ox 96 92 O2 Delivery Room Air Room Air Room Air 01/11/17 01/11/17 01/11/17 01/11/17 21:20 21:27 22:20 22:43 Temp 98.8 98.9 98.9 98.8 98.9 98.9 Pulse 74 84 84 Resp 18 18 18 18 B/P (MAP) 115/62 116/59 116/59 O2 Delivery Room Air 01/11/17 01/11/17 01/12/17 01/12/17 23:00 23:10 00:00 01:05 Temp 98.8 98.8 98.8 98.3 98.8 98.8 98.8 98.3 Pulse 82 82 77 64 Resp 18 18 18 18 B/P (MAP) 98/53 98/53 (68) 104/69 107/74 Pulse Ox 93 O2 Delivery Room Air 01/12/17 01/12/17 01/12/17 01/12/17 02:10 03:00 06:45 07:11 Temp 98.5 97.9 97.7 98.5 97.9 97.7 Pulse 72 64 70 Resp 18 18 20 B/P (MAP) 114/58 113/58 (76) 119/59 (79) Pulse Ox 95 93 94 O2 Delivery Room Air Room Air Room Air 01/12/17 01/12/17 01/12/17 01/12/17 07:20 08:18 08:19 09:55 Pulse 70 B/P (MAP) 119/59 O2 Delivery Room Air Room Air Room Air 01/12/17 01/12/17 01/12/17 01/12/17 10:44 11:00 12:21 15:00 Temp 97.7 97.9 97.7 97.9 Pulse 76 72 Resp 18 18 B/P (MAP) 116/63 (80) 121/64 (83) Pulse Ox 94 95 O2 Delivery Room Air Room Air Room Air Room Air 01/12/17 01/12/17 01/12/17/7/17 15:07 16:07 17:13 17:55 O2 Delivery Room Air Room Air Room Air Room Air Intake and Output 01/11/17 01/11/17 01/12/17 15:00 23:00 07:00 Intake Total 0 ml Output Total 250 ml 2750 ml Balance -250 ml -2750 ml HOMERO MCMANUS MD January 12, 2017 19:28
[2017-01-12] MEDS: TAMSULOSIN 0.4 MG CAP.ER.24H. PO SCH (21:16)
[2017-01-12] MEDS: traZODone 100 MG TABLET. PO SCH (21:16)
--- NOTE | 2017-01-12 22:49 | CONS ---
DATE OF CONSULTATION: 01/12/2017 LOCATION: The patient's room is 400. HISTORY OF PRESENT ILLNESS: The patient is a very pleasant 76-year-old white male who was admitted with a left proximal humerus fracture. He underwent ORIF of the left proximal humerus fracture on 01/08/2017. Postoperatively, the patient had urinary retention and had a Mooney catheter placed. The patient noted to have some gross hematuria, not listed on how much urinary retention the patient had when his Mooney catheter was placed. The patient states he has never had any urologic operations and normally according to the patient he does not take any medications for his prostate. The patient now is on Flomax. The patient's urine on admission from 01/07/2017 showed no red cells, no white cells, no bacteria. Creatinine is 0.6. Platelet count initially was thrombocytopenic with a 58,000 now currently is 110,000. PAST MEDICAL HISTORY: Hypertension, COPD, dementia, GERD, hemorrhoids. PAST SURGICAL HISTORY: The patient has had cholecystectomy, multiple back operations. PHYSICAL EXAMINATION: GENITOURINARY: Testes are descended bilaterally. Phallus within normal limits. He has Mooney catheter to gravity drainage, although there is red urine in the Mooney bag in the tubing, it is actually nani. RECTAL: Fairly good sphincter tone. Prostate smooth without nodules, 15 grams. ASSESSMENT: Urinary retention and hematuria after Mooney placement, which is now clearing. PLAN: I would recommend keeping the Mooney catheter in place, staying on Flomax. We will get a renal bladder ultrasound on the patient and then plan on having the patient follow up in the Urology office in a week with nurse practitioner, Nallely Pratt, for a voiding trial. I certainly appreciate being allowed to participate in this patient's care. HOMERO MCMANUS MD DR: AMINA/mai JOB#: [id number] / [id number]
[2017-01-13 03:09] VITALS: BP 120/63
[2017-01-13 04:30] LABS: HEMATOCRIT 27.2 % (39.0-53.0); HEMOGLOBIN 9.4 g/dL (13.0-17.5); RED BLOOD COUNT 2.81 x10^6/uL (4.30-5.70); RED CELL DISTRIBUTION WIDTH 14.7 % (11.5-14.5); WHITE BLOOD COUNT 4.8 x10^3/uL (4.0-11.0)
[2017-01-13] MEDS: oxyCODONE IR 5 MG TABLET PO PRN ×2 (04:53→13:04)
[2017-01-13 07:00] VITALS: BP 140/59
[2017-01-13] MEDS: IPRATRPIUM/ALBUTEROL 0.5/2.5MG 3 ML NEBU. NEB SCH ×3 (07:19→14:51)
[2017-01-13] MEDS: BUDESONIDE 0.5 MG/2 ML NEBU. NEB SCH (07:19)
[2017-01-13] MEDS: IV NORMAL SALINE 1000ML BAG 1,000 ML IV SCH ×2 (07:33→17:00)
[2017-01-13] MEDS: PANTOPRAZOLE 40 MG TABLET.DR. PO SCH (08:11)
[2017-01-13] MEDS: DONEPEZIL HCL 10 MG TABLET. PO SCH (08:11)
[2017-01-13] MEDS: LISINOPRIL 20 MG TABLET PO SCH (08:11)
[2017-01-13] MEDS: MORPHINE ER 30 MG TABLET.ER PO SCH (08:15)
[2017-01-13 10:38] VITALS: BP 143/68
--- NOTE | 2017-01-13 11:27 | PDOC ---
PROGRESS NOTES Subjective Subjective Pt. feeling ok Objective Objective Vital Signs Date Time Temp Pulse Resp B/P (MAP) Pulse Ox O2 Delivery O2 Flow Rate FiO2 01/13/17 11:06 95 Room Air 01/13/17 10:38 97.6 89 20 143/68 (93) 97.6 01/08/17 21:30 2.0 Intake and Output 01/13/17 07:00 Intake Total 1695 ml Output Total 1325 ml Balance 370 ml Intake Oral 920 ml IV Total 775 ml Output Urine Total 1325 ml Physical Exam Physical Exam pfeiffer in place Plan Plan of Care urine clear in tubing get renal sono voiding trial in 1 week Problems Medical Problems: (1) Shoulder fracture, left Status: Acute Comment Review of Relevant I have reviewed the following items varsha (where applicable) has been applied. Labs Laboratory Tests Test 01/11/17 14:50 01/12/17 05:20 01/12/17 05:50 01/13/17 03:40 White Blood Count 5.2 x10^3/uL (4.0-11.0) 5.7 x10^3/uL (4.0-11.0) 4.8 x10^3/uL (4.0-11.0) Red Blood Count 2.11 x10^6/uL (4.30-5.70) 3.05 x10^6/uL (4.30-5.70) 2.81 x10^6/uL (4.30-5.70) Hemoglobin 7.3 g/dL (13.0-17.5) 10.2 g/dL (13.0-17.5) 9.4 g/dL (13.0-17.5) Hematocrit 20.6 % (39.0-53.0) 28.8 % (39.0-53.0) 27.2 % (39.0-53.0) Mean Corpuscular Volume 98 fL (79-100) 95 fL (79-100) 97 fL (79-100) Mean Corpuscular Hemoglobin 35 pg (25-35) 33 pg (25-35) 33 pg (25-35) Mean Corpuscular Hemoglobin Concent 35 g/dL (31-37) 35 g/dL (31-37) 35 g/dL (31-37) Red Cell Distribution Width 13.1 % (11.5-14.5) 14.9 % (11.5-14.5) 14.7 % (11.5-14.5) Platelet Count 134 x10^3/uL (140-400) 110 x10^3/uL (140-400) 149 x10^3/uL (140-400) Sodium Level 134 mmol/L (136-145) 136 mmol/L (136-145) Potassium Level 4.2 mmol/L (3.5-5.1) 4.0 mmol/L (3.5-5.1) Chloride Level 102 mmol/L (98-107) 102 mmol/L (98-107) Carbon Dioxide Level 30 mmol/L (21-32) 30 mmol/L (21-32) Anion Gap 2 (6-14) 4 (6-14) Blood Urea Nitrogen 12 mg/dL (8-26) 12 mg/dL (8-26) Creatinine 0.6 mg/dL (0.7-1.3) 0.6 mg/dL (0.7-1.3) Estimated GFR (Cockcroft-Gault) 131.3 131.3 Glucose Level 93 mg/dL (70-99) 83 mg/dL (70-99) Calcium Level 7.5 mg/dL (8.5-10.1) 7.6 mg/dL (8.5-10.1) Neutrophils (%) (Auto) 67 % (31-73) Lymphocytes (%) (Auto) 17 % (24-48) Monocytes (%) (Auto) 11 % (0-9) Eosinophils (%) (Auto) 3 % (0-3) Basophils (%) (Auto) 1 % (0-3) Neutrophils # (Auto) 3.9 x10^3uL (1.8-7.7) Lymphocytes # (Auto) 1.0 x10^3/uL (1.0-4.8) Monocytes # (Auto) 0.7 x10^3/uL (0.0-1.1) Eosinophils # (Auto) 0.2 x10^3/uL (0.0-0.7) Basophils # (Auto) 0.0 x10^3/uL (0.0-0.2) Laboratory Tests Test 01/13/17 03:40 White Blood Count 4.8 x10^3/uL (4.0-11.0) Red Blood Count 2.81 x10^6/uL (4.30-5.70) Hemoglobin 9.4 g/dL (13.0-17.5) Hematocrit 27.2 % (39.0-53.0) Mean Corpuscular Volume 97 fL (79-100) Mean Corpuscular Hemoglobin 33 pg (25-35) Mean Corpuscular Hemoglobin Concent 35 g/dL (31-37) Red Cell Distribution Width 14.7 % (11.5-14.5) Platelet Count 149 x10^3/uL (140-400) Medications Current Medications Fentanyl Citrate (Fentanyl 2ml Vial) 75 mcg 1X ONCE IV Last administered on 04:27; Start 01/07/17 at 04:30; Stop 01/07/17 at 04:31; Status DC Ondansetron HCl (Zofran) 4 mg PRN Q8HRS PRN IV NAUSEA/VOMITING; Start 01/07/17 at 05:00; Stop 01/08/17 at 04:59; Status DC Fentanyl Citrate (Fentanyl 2ml Vial) 50 mcg PRN Q2HR PRN IV SEVERE PAIN Last administered on 01/08/17 04:55; Start 01/07/17 at 05:00; Stop 01/08/17 at 04:59; Status DC Donepezil HCl (Aricept) 10 mg DAILY PO Last administered on 01/13/17 08:11; Start 01/07/17 at 09:00 Lisinopril (Prinivil) 40 mg DAILY PO Last administered on 01/08/17 08:05; Start 01/07/17 at 09:00; Stop 01/11/17 at 14:21; Status DC Pantoprazole Sodium (Protonix) 40 mg DAILYAC PO Last administered on 01/13/17 08:11; Start 01/07/17 at 09:00 Tamsulosin HCl (Flomax) 0.4 mg QHS PO Last administered on 01/12/17 21:16; Start 01/07/17 at 21:00 Trazodone HCl (Desyrel) 100 mg QHS PO Last administered on 01/12/17 21:16; Start 01/07/17 at 21:00 Non-Formulary Medication 1 each BID IH ; Start 01/07/17 at 09:00; Status UNV Non-Formulary Medication 4 gm QID IH ; Start 01/07/17 at 09:00; Status UNV Morphine Sulfate (Ms Contin) 60 mg BID PO Last administered on 01/13/17 08:15; Start 01/07/17 at 09:00 Oxycodone HCl (Roxicodone) 10 mg PRN Q6HRS PRN PO PAIN Last administered on 01/13 04:53; Start 01/07/17 at 08:30 Albuterol/ Ipratropium (Duoneb) 3 ml RTQID NEB Last administered on 01/13/17 11 :06; Start 01/07/17 at 09:00 Budesonide (Pulmicort) 0.5 mg RTBID NEB Last administered on 01/13/17 07:19; Start 01/07/17 at 09:00 Sodium Chloride 1,000 ml @ 100 mls/hr 1X ONCE IV Last administered on 09:28; Start 01/07/17 at 08:30; Stop 01/07/17 at 18:29; Status DC Fentanyl Citrate (Fentanyl 2ml Vial) 50 mcg PRN Q5MIN PRN IV Acute Pain Last administered on 01/08/17 18:07; Start 01/07/17 at 20:15; Stop 01/08/17 at 20:14; Status DC Morphine Sulfate 4 mg PRN Q10MIN PRN IV Moderate Pain; Start 01/07/17 at 20:15; Stop 01/08/17 at 20:14; Status DC Hydromorphone HCl (Dilaudid) 0.4 mg PRN Q10MIN PRN IV Moderate to severe pain; Start 01/07/17 at 20:15; Stop 01/08/17 at 20:14; Status DC Meperidine HCl (Demerol) 12.5 mg PRN Q5MIN PRN IV SHIVERING; Start 01/07/17 at 20:15; Stop 01/08/17 at 20:14; Status DC Prochlorperazine Edisylate (Compazine) 5 mg PRN Q6HRS PRN IV Nausea/Vomiting, 1st Choice; Start 5/2/17 at 20:15; Stop 01/08/17 at 20:14; Status DC Diphenhydramine HCl (Benadryl) 12.5 mg PRN Q2HR PRN IV ITCHING; Start 01/07/17 at 20:15; Stop 01/08/17 at 20:14; Status DC Midazolam HCl (Versed) 2 mg PRN 1X PRN IV PRIOR TO PROCEDURE; Start 01/07/17 at 20:15; Stop 01/08/17 at 20:14; Status DC Midazolam HCl (Versed) 1 mg PRN 1X PRN IV PRIOR TO PROCEDURE; Start 01/07/17 at 20:15; Stop 01/08/17 at 20:14; Status DC Fentanyl Citrate (Fentanyl 2ml Vial) 25 mcg PRN Q5MIN PRN IV X 2 DOSES FOR PAIN ; Start 01/07/17 at 20:15; Stop 01/08/17 at 20:14; Status DC Fentanyl Citrate (Fentanyl 2ml Vial) 50 mcg PRN Q5MIN PRN IV X 2 DOSES FOR PAIN ; Start 01/07/17 at 20:15; Stop 01/08/17 at 20:14; Status DC Lidocaine HCl 2 ml 1X PRN PRN ID IV START; Start 01/07/17 at 20:15; Stop at 20:14; Status DC Propofol 20 ml @ As Directed STK-MED ONCE IV ; Start 01/08/17 at 14:45; Stop 01/08 at 14:46; Status DC Lidocaine HCl (Lidocaine HCl 2% Abboject) 100 mg STK-MED ONCE .ROUTE ; Start 01/08/17 at 14:45; Stop 01/08/17 at 14:46; Status DC Ondansetron HCl (Zofran) 4 mg STK-MED ONCE .ROUTE ; Start 01/08/17 at 14:45; Stop 01/08/17 at 14:46; Status DC Dexamethasone Sodium Phosphate (Decadron) 20 mg STK-MED ONCE .ROUTE ; Start 01/08 at 14:45; Stop 01/08/17 at 14:46; Status DC Phenylephrine HCl 1 mg STK-MED ONCE IV ; Start 01/08/17 at 14:46; Stop 01/08/17 at 14:47; Status DC Ephedrine Sulfate 50 mg STK-MED ONCE IV ; Start 01/08/17 at 14:46; Stop 01/08/17 at 14:47; Status DC Fentanyl Citrate (Fentanyl 5ml Vial) 250 mcg STK-MED ONCE .ROUTE ; Start at 14:47; Stop 01/08/17 at 14:48; Status DC Rocuronium [place] (Zemuron) 50 mg STK-MED ONCE .ROUTE ; Start 01/08/17 at 14:47 ; Stop 01/08/17 at 14:48; Status DC Succinylcholine Chloride (Anectine) 200 mg STK-MED ONCE .ROUTE ; Start 01/08/17 at 15:25; Stop 01/08/17 at 15:26; Status DC Cefazolin Sodium/ Dextrose 50 ml @ As Directed STK-MED ONCE IV ; Start 01/08/17 at 15:44; Stop 01/08/17 at 15:45; Status DC Phenylephrine HCl (Da-Synephrine Inj) 10 mg STK-MED ONCE .ROUTE ; Start at 16:14; Stop 01/08/17 at 16:15; Status DC Desflurane (Suprane) 90 ml STK-MED ONCE IH ; Start 01/08/17 at 17:05; Stop at 17:06; Status DC Neostigmine Methylsulfate 5 mg STK-MED ONCE .ROUTE ; Start 01/08/17 at 17:08; Stop 01/08/17 at 17:09; Status DC Glycopyrrolate (Robinul) 1 mg STK-MED ONCE .ROUTE ; Start 01/08/17 at 17:09; Stop 01/08/17 at 17:10; Status DC Lisinopril (Prinivil) 20 mg DAILY PO Last administered on 01/13/17 08:11; Start 01/11/17 at 15:00 Sodium Chloride 250 ml @ 250 mls/hr 1X ONCE IV Last administered on 01/11/17 15:00; Start 01/11/17 at 15:00; Stop 01/11/17 at 15:59; Status DC Sodium Chloride 1,000 ml @ 100 mls/hr Q10H IV Last administered on 01/12/17 16 :08; Start 01/11/17 at 15:00 Furosemide (Lasix) 40 mg 1X PRN PRN IV blood transfusion Last administered on t 21:27; Start 01/11/17 at 15:15; Stop 01/12/17 at 15:14; Status DC Active Scripts Active Flomax (Tamsulosin Hcl) 0.4 Mg Cap.er.24h 0.4 Mg PO QHS Levaquin (Levofloxacin) 500 Mg Tablet 500 Mg PO DAILY06 Protonix (Pantoprazole Sodium) 40 Mg Tablet 40 Mg PO DAILYAC Reported Morphine Sulfate Cr (Morphine Sulfate) 60 Mg Tablet.er 60 Mg PO TID Generlac (Lactulose) 10 Gm/15 Ml Solution 10 Gm PO BID Vitamin D2 (Ergocalciferol (Vitamin D2)) 50,000 Unit Capsule 50,000 Unit PO WEEKLY Aspir 81 (Aspirin) 81 Mg Tablet.dr 81 Mg PO DAILY Advair 100-50 Diskus (Fluticasone/Salmeterol) 1 Each Disk.w.dev 1 Each IH BID Combivent Respimat Inhal (Ipratropium/Albuterol Sulfate) 4 Gm Aer.w.adap 4 Gm IH QID Aricept (Donepezil Hcl) 10 Mg Tablet 10 Mg PO DAILY Percocet 10-325 Mg Tablet (Oxycodone/Acetaminophen) 1 Each Tablet 1 Each PO QID Lisinopril 40 Mg Tablet 40 Mg PO DAILY Trazodone Hcl 100 Mg Tablet 100 Mg PO 1X Vitals/I & O Vital Sign - Last 24 Hours 01/12/17 01/12/17 01/12/17 01/12/17 12:21 15:00 15:07 16:07 Temp 97.9 97.9 Pulse 72 Resp 18 B/P (MAP) 121/64 (83) Pulse Ox 95 O2 Delivery Room Air Room Air Room Air Room Air 01/12/17 01/12/17 01/12/17 01/12/17 17:13 17:55 19:43 20:00 Temp 98.4 98.4 Pulse 92 Resp 18 B/P (MAP) 113/64 (80) Pulse Ox 96 O2 Delivery Room Air Room Air Room Air Room Air 01/12/17 01/12/17 01/13/17 01/13/17 21:16 23:15 03:09 07:00 Temp 97.9 99.0 98.8 97.9 99.0 98.8 Pulse 80 80 72 Resp 18 18 18 22 B/P (MAP) 134/76 (95) 120/63 (82) 140/59 (86) Pulse Ox 97 96 96 O2 Delivery Room Air Room Air Room Air Room Air 01/13/17 01/13/17 01/13/17 01/13/17 07:19 07:35 08:11 08:15 Pulse 72 B/P (MAP) 140/59 Pulse Ox 96 O2 Delivery Room Air Room Air Room Air 01/13/17 01/13/17 10:38 11:06 Temp 97.6 97.6 Pulse 89 Resp 20 B/P (MAP) 143/68 (93) Pulse Ox 94 95 O2 Delivery Room Air Room Air Intake and Output 01/12/17 01/12/17 01/13/17 15:00 23:00 07:00 Intake Total 120 ml 775 ml 800 ml Output Total 475 ml 850 ml Balance 120 ml 300 ml -50 ml HOMERO MCMANUS MD January 13, 2017 11:27
[2017-01-13 15:00] VITALS: BP 111/65
--- NOTE | 2017-01-13 23:19 | DS ---
DATE OF DISCHARGE: 01/13/2017 ADMIT DIAGNOSES: 1. Acute left humerus fracture. 2. Thrombocytopenia. 3. Hyponatremia. 4. Traumatic blood loss anemia. 5. Protein malnutrition. 6. Ongoing dementia. 7. Severe spinal stenosis with chronic back pain. 8. Reflux esophagitis. 9. Hypertension. 10. Severe chronic obstructive pulmonary disease. HOSPITAL COURSE: This patient was admitted after a recent fall having immediate left shoulder pain and showing evidence of an impacted left humerus fracture, which was also angulated. He underwent orthopedic evaluation and open reduction internal fixation. The patient's hospital course was complicated by progressive anemia requiring transfusion as well as severe pain. The patient also had evidence of gross hematuria. Urology was consulted and Mooney catheter was continued with recommendations of monitoring urinary output for 1 week and starting Flomax for BPH and following up in 1 week in Urology Clinic for continued evaluation of hematuria. Serial hemoglobins will be done during hospital stay and will be done as outpatient at [facility]. The patient unable to care for himself due to rehabilitation and recent injuries, therefore, he will be transferred to [facility] for continued care. DISCHARGE MEDICATIONS: He will be continued on the following medications: Aricept 10 mg daily, vitamin D 50,000 international units weekly, Advair 100/50 one puff b.i.d., DuoNeb nebulizer treatments q.6h., lactulose 10 grams b.i.d., lisinopril 20 mg daily, MS Contin 60 mg t.i.d., Percocet 10/325 one q.6h., p.r.n., Protonix 40 mg daily, Flomax 0.4 daily, trazodone 100 mg at bedtime. He will be followed at [facility] for continued care. TEODORA SHARP MD DR: UMER/mai JOB#: [id number] / [id number]
== END 2017-01-13 18:00 | DRG 492 ==
LOC: ER 03:35 → 4 NORTH 04:38
PROVIDERS: ADMIT Family Medicine; ATTEND Family Medicine
PROC: 0PSD04Z Reposition Left Humeral Head with Internal Fixation Device, Open Approach (ICD-10-PCS; principal; 2017-01-08 15:30)
PROC: 30233N1 Transfusion of Nonautologous Red Blood Cells into Peripheral Vein, Percutaneous Approach (ICD-10-PCS; 2017-01-11)
DX: S42.302A Unspecified fracture of shaft of humerus, left arm, initial encounter for closed fracture (principal); E43 Unspecified severe protein-calorie malnutrition; E87.1 Hypo-osmolality and hyponatremia; D69.6 Thrombocytopenia, unspecified; F03.90 Unspecified dementia, unspecified severity, without behavioral disturbance, psychotic disturbance, mood disturbance, and anxiety; J44.9 Chronic obstructive pulmonary disease, unspecified; D50.0 Iron deficiency anemia secondary to blood loss (chronic); E86.0 Dehydration; G89.29 Other chronic pain; I10 Essential (primary) hypertension; R31.0 Gross hematuria; F41.9 Anxiety disorder, unspecified; N40.1 Benign prostatic hyperplasia with lower urinary tract symptoms; M54.5 Low back pain; K21.0 Gastro-esophageal reflux disease with esophagitis; M48.00 Spinal stenosis, site unspecified; R73.9 Hyperglycemia, unspecified; R33.8 Other retention of urine; Y93.01 Activity, walking, marching and hiking; W01.0XXA Fall on same level from slipping, tripping and stumbling without subsequent striking against object, initial encounter; Y92.89 Other specified places as the place of occurrence of the external cause; Y99.8 Other external cause status; Z82.5 Family history of asthma and other chronic lower respiratory diseases; Z86.73 Personal history of transient ischemic attack (TIA), and cerebral infarction without residual deficits; Z98.49 Cataract extraction status, unspecified eye; Z90.49 Acquired absence of other specified parts of digestive tract; Z98.1 Arthrodesis status; Z85.46 Personal history of malignant neoplasm of prostate; Z68.22 Body mass index [BMI] 22.0-22.9, adult
CPT/HCPCS: 36415; 73030; 73060; 73090; 76000; 76770; 80048; 80053; 81001; 83036; 85007; 85027; 85610; 85730; 86850; 86900; 86901; 86920; 87641; 94250; 94640; 94760; 96374; J0330; J0690; J1100; J1940; J2370; J2405; J2704; J2710; J3010; J3490; J7030; J7050; J7120; J7620; P9016; 97110; 97116; 97530; 97535; 99285-25